=== PATIENT | male | born 1935 | race Caucasian/White ===

== ENCOUNTER → 2016-12-11 | Outpatient (CLI) | payer MEDICARE, OTHER | LOC: YCHH 10:08 | PROVIDERS: ATTEND Family Medicine | DX: E11.21 Type 2 diabetes mellitus with diabetic nephropathy (principal); E78.5 Hyperlipidemia, unspecified; D64.9 Anemia, unspecified; Z12.5 Encounter for screening for malignant neoplasm of prostate | CPT/HCPCS: 80053; 80061; 82043; 83036; 85025; G0103 ==

== ENCOUNTER → 2017-05-06 | Outpatient (CLI) | payer MEDICARE, OTHER ==
--- NOTE | 2017-05-06 14:44 | CT ---
EXAM DESCRIPTION: Chest w/Contrast CLINICAL HISTORY: 82 years, Male, ABN FINDINGS ON DIAGNOSTIC IMAGING OF OTHER SPECIFIED BODY STRUCT abnormal left lower lobe on chest x-ray COMPARISON: None TECHNIQUE: Thin-section axial CT images are obtained during rapid bolus administration of nonionic IV contrast media. Reconstructed MPR images are created and reviewed as well. This exam was performed according to our departmental dose-optimization program, which includes automated exposure control, adjustment of the mA and/or kV according to patient size and/or use of iterative reconstruction technique. FINDINGS: Advanced emphysematous changes are present with very little fibrotic lung disease. The upper and mid lung navarro are essentially clear. In the medial anterior right lung base within the right middle lobe is linear scarring that lies just lateral to the cardiac border. The left lung base is abnormal with coarsened interstitial and patchy parenchymal markings consistent with bronchopneumonia with what likely represents mild changes of bronchiectasis. There is no significant pleural effusion and there is no focal mass or dense lobar or segmental consolidation. How much of these findings is chronic and how much is acute is difficult to assess. Below the diaphragm fatty replaced liver is present with heterogeneous spleen and normal appearance to the adrenal glands and the upper poles of the kidneys. A modest hiatal hernia in the retrocardiac region is present. Prior sternotomy and epicardial pacing leads are noted in place anteriorly. Thoracic inlet and superior mediastinum and supraclavicular and axillary regions are clear. Significant hilar or mediastinal adenopathy centrally is not apparent. Visualized bony structures are unremarkable with modest degenerative changes in the dorsal spine. IMPRESSION: 1. Significant mixed interstitial and alveolar inflammatory changes at the left lung base with mixed interstitial and alveolar changes and likely an element of bronchiectasis. Acute and/or chronic inflammatory changes are suspected. 2. Minor scarring or atelectasis at the anterior medial right lung base with marked emphysematous changes in both lungs. 3. Marked fatty replacement of the liver without focal mass. 4. Prior sternotomy and epicardial pacing leads noted in place. Small hiatal hernia is incidentally noted. Electronically signed by: Devyn Lomas MD 05/06/2017 2:43 PM CDT
== END | disposition home or self-care (01) ==
LOC: LAB.O 09:20
PROVIDERS: ATTEND Family Medicine
DX: I10 Essential (primary) hypertension (principal); R93.8 Abnormal findings on diagnostic imaging of other specified body structures

== ENCOUNTER 2017-10-09 14:15 | Inpatient (IN) | payer MEDICARE, OTHER ==
[2017-10-09] MEDS ORDERED: IPRATROPIUM/ALBUTEROL 3 ML VIAL NEB ONE (14:36)
--- NOTE | 2017-10-09 14:36 | ED.PDOC ---
History of Present Illness - General Chief Complaint: Respiratory Problem Stated Complaint: Cough, congestion Time Seen by Provider: 10/09/17 14:33 Source: patient, family Exam Limitations: no limitations - History of Present Illness Initial Comments: Jorge Alberto Cook 82 y/o male stated he has productive cough of yellow phlegm for the last 3 weeks and was seen at urgent care last week given b -agonist nebulizer also had recent egd 4 days ago.Yesterday was short of breath got worse today decide to come to emergency room. Timing/Duration: other - 3 weeks Severity: moderate Possible Cause: occasional episodes, allergen exposure Improving Factors: nothing Worsening Factors: nothing Associated Symptoms: cough, other - see hpi Allergies/Adverse Reactions: Allergies Sulfa Antibiotics Allergy (Verified 10/09/17 14:38) Unknown Review of Systems - Review of Systems Constitutional: States: no symptoms reported EENTM: States: no symptoms reported Respiratory: States: see HPI Cardiology: States: no symptoms reported Gastrointestinal/Abdominal: States: no symptoms reported Genitourinary: States: no symptoms reported Musculoskeletal: States: no symptoms reported Skin: States: no symptoms reported Past Medical History (General) - Patient Medical History Hx Asthma: Yes Hx Cardiac Disorders: Yes Hx Gastroesophageal Reflux: Yes Surgical History: other - aortic valve replacement-1998,cardiac cath-4 yrs. ago, cataract,egd,colonoscopy - Social History Hx Tobacco Use: No Hx Chewing Tobacco Use: No Hx Alcohol Use: No Hx Physical Abuse: No Hx Emotional Abuse: No Hx Suspected Abuse: No - Activities of Daily Living Patient Lives Alone: No - family Grooming Ability: Independent Eating (Feeding) Ability: Independent Toileting Ability: Independent Family Medical History - Family History Father Family History: Unknown Living Status: Hx Cardiac Disease: Yes - mom/dad Hx Family Diabetes: Yes - brother Physical Exam - Physical Exam General Appearance: Alert, No apparent distress Eye Exam: bilateral normal ENT Exam: normal ENT inspection, hearing grossly normal, pharynx normal Neck: non-tender, full range of motion, supple, lymphadenopathy (R) Respiratory: no respiratory distress, decreased breath sounds, wheezing Cardiovascular/Chest: normal peripheral pulses, tachycardia, systolic murmur Gastrointestinal/Abdominal: normal bowel sounds, non tender, soft, no organomegaly Extremity: no pedal edema, no calf tenderness Neurologic: no motor/sensory deficits, alert, normal mood/affect, oriented x 3 Skin Exam: normal color, warm/dry Lymphatic: no adenopathy Progress - Progress Progress: 10/09/17 15:46 Last Vital Signs Temp 99.7 F H 10/09/17 14:32 Pulse 116 H 10/09/17 14:55 Resp 16 10/09/17 14:55 BP 116/86 10/09/17 14:32 Pulse Ox 94 L 10/09/17 14:55 - Results/Orders Results/Orders: Laboratory Tests 10/09/17 10/09/17 10/09/17 15:13 15:13 15:13 WBC 14.9 H RBC 5.08 Hgb 13.3 L Hct 41.3 L MCV 81.2 MCH 26.1 L MCHC 32.3 L RDW 16.0 H Plt Count 253 MPV 8.9 Absolute Neuts (auto) 13.90 H Absolute Lymphs (auto) 0.40 L Absolute Monos (auto) 0.60 Absolute Eos (auto) 0.00 Absolute Basos (auto) 0.00 Neutrophils % 93.0 H Lymphocytes % 2.7 L Monocytes % 4.2 Eosinophils % 0.0 L Basophils % 0.1 PT INR Sodium 133 L Potassium 5.4 H Chloride 103 Carbon Dioxide 20 L Anion Gap 15.4 BUN 34 H Creatinine 1.47 H BUN/Creatinine Ratio 23.1 H Random Glucose 187 H Serum Osmolality 278.9 Calcium 9.2 Total Bilirubin 1.0 AST 27 ALT 15 Alkaline Phosphatase 37 L Troponin I 0.08 H* B-Natriuretic Peptide 256.0 H* Serum Total Protein 7.4 Albumin 4.2 Globulin 3.2 Albumin/Globulin Ratio 1.3 10/09/17 10/09/17 15:22 16:49 WBC RBC Hgb Hct MCV MCH MCHC RDW Plt Count MPV Absolute Neuts (auto) Absolute Lymphs (auto) Absolute Monos (auto) Absolute Eos (auto) Absolute Basos (auto) Neutrophils % Lymphocytes % Monocytes % Eosinophils % Basophils % PT 24.7 H* INR 2.200 Sodium Potassium Chloride Carbon Dioxide Anion Gap BUN Creatinine BUN/Creatinine Ratio Random Glucose Serum Osmolality Calcium Total Bilirubin AST ALT Alkaline Phosphatase Troponin I 0.07 H* B-Natriuretic Peptide Serum Total Protein Albumin Globulin Albumin/Globulin Ratio - EKG/XRAY/CT EKG: Sinus, Tachy, LBBB Comments: HR-120,lae XRAY: chest - bilateral lower lobe infiltrate Departure - Departure Clinical Impression: Anticoagulant long-term use, Non-ST elevation [place] (NSTEMI) Pneumonia Qualifiers: Pneumonia type: due to unspecified organism Laterality: bilateral Lung location : lower lobe of lung Qualified Code(s): J18.9 - Pneumonia, unspecified organism Asthma Qualifiers: Asthma severity: unspecified severity Asthma complication type: with acute exacerbation Qualified Code(s): J45.901 - Unspecified asthma with (acute) exacerbation Time of Disposition: 18:46 Disposition: Admit Patient Decision To Admit - Decistion To Admit Decision to Admit Reason: Admit from ER Decision to Admit Date: 10/09/17 - D/W Ian Luciano-ANP/Hospitalist Decision to Admit Time: 18:47
--- NOTE | 2017-10-09 15:14 | RAD ---
EXAM DESCRIPTION: Chest,2 Views CLINICAL HISTORY: 82 years Male, cough COMPARISON: November 15, 2007 TECHNIQUE: PA and lateral views FINDINGS: Sternotomy changes. Parenchymal infiltrate has developed within both lower lobes. Upper lungs remain clear. Small bilateral pleural effusions. IMPRESSION: Bibasilar parenchymal infiltrate has developed Electronically signed by: Rell Jesus 10/09/2017 3:13 PM SPEECH ASSISTANT
[2017-10-09] MEDS ORDERED: SODIUM CHLORIDE 0.9% 500ML 500 ML IVS ONE ×2 (15:20→19:12)
[2017-10-09] MEDS ORDERED: AZITHROMYCIN IV 500 MG in SODIUM CHLORIDE 0.9% 250ML 250 ML IVPB ONE (15:22)
[2017-10-09] MEDS ORDERED: cefTRIAXone SODIUM 1 GM in SODIUM CHL 0.9% 50ML MIN-BAG+ 50 ML IVPB ONE (15:22)
[2017-10-09] MEDS ORDERED: methylPREDNISolone SODIUM SUC 125 MG/2 ML VIAL IV ONE (15:26)
[2017-10-09] MEDS ORDERED: cefTRIAXone SODIUM 1 GM VIAL ONE (15:47)
[2017-10-09] MEDS ORDERED: SODIUM CHL 0.9% 50ML MIN-BAG+ 50 ML IVPB ONE (15:47)
[2017-10-09] MEDS: PANTOPRAZOLE SODIUM TAB 40 MG PO ONE ×2 (16:01→19:48)
[2017-10-09] MEDS ORDERED: AZITHROMYCIN IV 500 MG VIAL IVPB ONE (16:56)
[2017-10-09] MEDS ORDERED: SODIUM CHLORIDE 0.9% 250ML 250 ML ONE (16:59)
--- NOTE | 2017-10-09 18:43 | HP ---
SUPERVISING PHYSICIAN: Devyn Huynh MD CHIEF COMPLAINT: Cough, congestion. HISTORY OF PRESENT ILLNESS: Mr. Cook is an 82 year-old male patient who presented to the Emergency Room complaining of increasing productive cough with purulent sputum over the last three weeks with increasing shortness of breath. He does have a significant history of chronic obstructive pulmonary disease with some bronchiectasis. He was seen in the Urgent Care Clinic the past week and given a prescription for albuterol but no mention of any antibiotics. He did recently have an EGD done in the past four days by Dr. Puente for evaluation of dysphagia. He also stated he had a couple episodes of choking on food. Laboratory studies on admission to the Emergency Department showed that he had a leukocytosis of 14,900 with a left shift. Chemistries initially showed elevated troponin of 0.08 with patient not having any reported chest pain. Repeat three hours later showed the troponin was down to 0.07. BNP was slightly up at 256. Electrolytes showed a mild hyponatremia with sodium of 133 with a hypokalemia, potassium of 5.4. Radiographic studies in the Emergency Room, 2-view chest per radiology interpretation showed bibasilar parenchymal infiltrate. His vital signs showed he was hemodynamically stable with a blood pressure of 129/79 with heart rate initially 127, saturation 90% on room air at rest. Given the worsening shortness of breath, productive cough and purulent sputum and radiographic findings consistent for pneumonia bilaterally with a leukocytosis, Dr. Dasilva requested the patient be admitted for initiation of treatment for underlying chronic obstructive pulmonary disease exacerbation with developing pneumonia community acquired. Blood cultures were completed and he was started on antibiotics including Rocephin and azithromycin as well as Solu-Medrol and breathing treatments. He was admitted in stable condition. PAST MEDICAL HISTORY: 1. Chronic obstructive pulmonary disease. 2. Type 2 diabetes mellitus. 3. Hyperlipidemia. 4. Coronary artery disease with stable angina medically managed in 2009. 5. Benign prostatic hypertrophy. 6. Aortic stenosis with aortic replacement. 7. Hypertension. 8. Seasonal allergies. 9. Osteoporosis. PAST SURGICAL HISTORY: 1. Tonsillectomy. 2. Aortic valve replacement with pig valve. 3. Esophagogastroduodenoscopy within the past week. 4. Esophagogastroduodenoscopy in 1998 with a dilation of a Schatzki ring.. CURRENT MEDICATIONS: 1. Lisinopril 10 mg at bedtime. 2. 5 mg in the morning. 3. Nitroglycerin tablets as needed, 0.4 mg. 4. Proventil nebulizer 2.5 mg twice a day. 5. Benadryl 25 mg daily. 6. Aspirin 325 mg twice a day. 7. Metformin 500 mg twice a day. 8. Gabapentin 300 mg at bedtime. 9. Phenylephrine with acetaminophen sinus congestion with pain daily, one tablet b.i.d. 10. Budesonide 0.25 mg twice a day. 11. Coumadin 2.5 mg daily. 12. Calcium 600 mg daily. 13. Prolia 60 mg subcu every 6 months. 14. Omeprazole 40 mg daily. ALLERGIES: SULFA ANTIBIOTICS. FAMILY HISTORY: Carcinoma of the colon, celiac disease, Crohn's disease, ulcerative colitis SOCIAL HISTORY: The patient is retired. He is . He lives in [place]. He does have a past history of smoking but quit many years previously. He denies any alcohol consumption or illicit drug use. REVIEW OF SYSTEMS: CONSTITUTIONAL: He has had some weight loss, unintentional, felt to be secondary to esophageal strictures for which he had an EGD within the last week. HEENT: Denies any dizziness, syncopal episodes, headaches, blurred vision or vision changes. CHEST: Chronic cough with worsening shortness of breath and productive cough as noted in history of present illness. HEART: Denies any chest pains, does have history of aortic valve replacement, no reported palpitations or syncopal episodes. Does have some shortness of breath on exertion. ABDOMEN: As noted in history of present illness. Previous EGD this past week for esophageal problem but denies any nausea, vomiting, diarrhea or constipation. GENITOURINARY: Denies any dysuria, hematuria or other urinary symptoms. NEUROLOGIC: Denies any syncopal episodes or other neurological changes. PHYSICAL EXAMINATION: VITAL SIGNS: Temperature 99.7, initial pulse in the Emergency Room was 127 with blood pressure 116/86. Respirations 22 to 24, showing 90% on room air at rest. After breathing treatment and after admission to the medical/surgical floor heart rate was 97, blood pressure 129/79. Saturation 97% on room air at rest. Weight 53.7 kg. GENERAL: On admission to the medical/surgical floor, the patient appears to be resting comfortably and in no distress. He does appear frail and ill but is alert. HEENT: Tympanic membranes clear bilaterally. Oropharynx pink and moist without any lesions. NECK: Supple, non-tender, full range of motion with no jugular venous distention. CHEST: Breath sounds were decreased throughout with some inspiratory expiratory wheezing, more so on the right than the left. CARDIOVASCULAR: Heart tachycardiac with a systolic murmur. ABDOMEN: Soft, non-tender, positive bowel sounds. EXTREMITIES: No cyanosis, clubbing, or edema. NEUROLOGIC: He was alert and oriented x 3. Facial features were symmetrical. Extraocular movement were within normal limits. Cranial nerves II through XII were grossly intact. LABORATORY: White count showed a leukocytosis of 14,900 with a left shift. Hemoglobin 13, hematocrit 41.3 with platelet count 253,000. Coagulation studies showed a therapeutic INR at 2.2 with PT of 24.7. Chemistries showed a hyponatremia of 133, hyperkalemia with potassium 5.4. Anion gap normal at 15. Carbon dioxide low at 20. BUN 34, creatinine 1.47, glucose 187. Liver functions showed to be within normal limits. BNP elevated at 256 with troponin initially of 0.08 with repeat 3 hours later after admission, it was down to 0.07. Urinalysis showed 15 ketones, tract intact blood. MICROSCOPIC: 5 to 10 RBCs, 1+ bacteria with trace amorphous sediment and mucous. MICROBIOLOGY: Gram stain pending. Sputum culture pending. Blood cultures pending. Influenza swab for A and B by PCR was negative. RADIOLOGY: Chest x-ray 2-view chest per radiology interpretation in the Emergency Department showed bibasilar parenchymal infiltrate with small bilateral pleural effusions. A 12-lead EKG showed a left bundle branch block with sinus tachycardia with no acute changes as compared to review of past EKG that was completed on 04/29/17 that showed a left bundle branch block. ASSESSMENT: 1. Acute exacerbation of chronic obstructive pulmonary disease with community acquired pneumonia as noted, bilateral infiltrates with a degree of bronchiectasis. 2. Leukocytosis with a left shift secondary to #1. 3. Electrolyte imbalance with a mild hyponatremia and mild hyperkalemia secondary to underlying developing pneumonia and some mild renal insufficiency. 4. Renal insufficiency likely due to prerenal azotemia and some mild dehydration contributing to the hyperkalemia 5. Slightly elevated troponin with an elevated BNP with no mention of history of congestive heart failure with patient having no reported chest pains and no acute changes on EKG possibly secondary to underlying hypoxemia secondary to pneumonia as noted in #1 although cannot completely rule out nonSTEMI. 6. Tachycardia probably related to underlying pneumonia and acute illness and some mild dehydration and possibly secondary to medication side effects to [id number] sinus medication. 7. Hypertension. 8. Diabetes mellitus type 2 on oral therapy. 9. History of coronary artery disease diagnosed in 2010 with stable angina medically managed. 10. Aortic stenosis with aortic valve replacement. 11. Osteoporosis. PLAN: Mr. Cook will be admitted to the medical/surgical floor for further treatment of underlying chronic obstructive pulmonary disease exacerbation and developing pneumonia. He was started on antibiotics after blood cultures were completed that included Rocephin and azithromycin. He was also given a loading dose of Solu-Medrol of 125 mg. Will continue with antibiotics and Solu-Medrol at 80 every 6 hours for 3 doses and utilize aggressive pulmonary hygiene with Xopenex in efforts to minimize his tachycardia. Will start him on some normal saline in efforts to correct his hyponatremia. Will continue the medications including Warfarin once the medications have been updated and verified in the electronic medical records. Will closely monitor his clinical progression and await a sputum culture as well as gram stain. He does have a slight risk for a previous aspiration and possible consideration or Pseudomonas infection given that he has underlying bronchiectasis, however, patient has not been on any antibiotics within the last 3 or 4 months and has not had a recent hospitalization. Therefore, will treat him conservatively wt Rocephin and azithromycin and should he show the need for escalation of his antibiotic regimen based on sputum cultures or clinical presentation, will certainly do so with Levaquin and Cefepime as needed. Will plan to repeat his laboratory studies and chest x-ray in the morning. Will anticipate length of stay to be at least 2 to 3 days and until clinically stable will continue to monitor and treat appropriately. Once discharged he can continue with outpatient treatment plan and close clinical followup with Dr. Hanna, his primary care physician. #[id number] #[id number] ELE
[2017-10-09] MEDS ORDERED: SODIUM CHLORIDE 0.9% 1000ML 1,000 ML ONE (19:11)
[2017-10-09] MEDS ORDERED: SODIUM CHLORIDE 0.9% 1000ML 1,000 ML IVS ONE (19:13)
[2017-10-09] MEDS ORDERED: LEVALBUTEROL NEBS 1.25 MG/3 ML VIAL INH PRN (20:33)
[2017-10-09] MEDS ORDERED: SODIUM CHLORIDE 0.9% (FLUSH) 10 ML SYG IV PRN (20:33)
[2017-10-09] MEDS ORDERED: ACETAMINOPHEN 325 MG TAB PO PRN (20:33)
[2017-10-09] MEDS ORDERED: DEXTROSE 50% 25 GM/50 ML SYG IV PRN (20:41)
[2017-10-09] MEDS ORDERED: GLUCAGON INJ 1 MG VIAL SUBCU PRN (20:41)
--- NOTE | 2017-10-09 20:49 | PCM.CORE ---
Physician DVT/VTE - Prophylaxis Currently: Patient already on anticoagulation therapy - Nurse DVT Assessment & Total Each Risk Factor Represents 3 Points: Age over 75 years Each Risk Factor Represents 1 Point: Medical PT at Bed Rest Each Risk Factor is 1 Point: Serious Lung disease (pnemonia <1month, COPD, emphysema,etc) DVT Assessment Score: 5 - 5 or more Very High Risk Treatments: Early Ambulation *, Sequential Compression Device Pharmacological: Warfarin daily
[2017-10-09] MEDS: IV SET AND CAP CHANGE INJ INJ SCH (21:00)
[2017-10-09] MEDS: SODIUM CHLORIDE 0.9% 1000ML 1,000 ML IVS PRN (21:02)
[2017-10-09] MEDS: INSULIN LISPRO 100 UNITS/ML PEN SUBCU SCH (21:34)
[2017-10-09] MEDS ORDERED: ALPRAZolam 0.25 MG TAB PO ONE (22:59)
[2017-10-09] MEDS: methylPREDNISolone SODIUM SUC 125 MG/2 ML VIAL IV SCH (23:25)
[2017-10-10] MEDS ORDERED: LEVALBUTEROL NEBS 1.25 MG/3 ML VIAL INH SCH
[2017-10-10] MEDS: SODIUM CHLORIDE 0.9% 1000ML 1,000 ML IVS PRN ×2 (04:37→19:42)
[2017-10-10] MEDS: methylPREDNISolone SODIUM SUC 125 MG/2 ML VIAL IV SCH ×2 (05:17→11:24)
[2017-10-10] MEDS: PANTOPRAZOLE SODIUM IV 40 MG VIAL IV SCH (06:03)
[2017-10-10] MEDS: INSULIN LISPRO 100 UNITS/ML PEN SUBCU SCH ×5 (07:22→21:09)
[2017-10-10] MEDS ORDERED: SODIUM CHLORIDE 0.9% 250ML 250 ML ONE (07:33)
[2017-10-10] MEDS ORDERED: SODIUM CHL 0.9% 50ML MIN-BAG+ 50 ML IVPB ONE (07:33)
[2017-10-10] MEDS ORDERED: cefTRIAXone SODIUM 1 GM VIAL ONE (07:34)
[2017-10-10] MEDS ORDERED: AZITHROMYCIN IV 500 MG VIAL IVPB ONE (07:34)
[2017-10-10] MEDS: LEVALBUTEROL NEBS 1.25 MG/3 ML VIAL NEB SCH ×3 (08:29→23:45)
--- NOTE | 2017-10-10 08:36 | RAD ---
EXAM DESCRIPTION: Chest,2 Views CLINICAL HISTORY: 82 years Male, Pneumonia COMPARISON: October 09, 2017 TECHNIQUE: PA lateral views FINDINGS: Sternotomy changes. Bibasilar infiltrate is again seen, unchanged. Upper lungs remain clear. Small effusions. IMPRESSION: Bibasilar infiltrate and small effusions unchanged Electronically signed by: Rell Jesus 10/10/2017 8:35 AM BRAID MAKER
[2017-10-10] MEDS: cefTRIAXone SODIUM 1 GM in SODIUM CHL 0.9% 50ML MIN-BAG+ 50 ML IVPB SCH (08:52)
[2017-10-10] MEDS: AZITHROMYCIN IV 500 MG in SODIUM CHLORIDE 0.9% 250ML 250 ML IVPB SCH (09:50)
[2017-10-10] MEDS: ARFORMOTEROL TARTRATE 15 MCG/2 ML NEB NEB SCH ×2 (10:15→19:30)
[2017-10-10] MEDS ORDERED: METOPROLOL TARTRATE 25 MG TAB PO ONE (13:12)
[2017-10-10] MEDS ORDERED: INSULIN DETEMIR 100 UNITS/ML PEN SUBCU ONE (13:13)
[2017-10-10] MEDS ORDERED: BUDESONIDE NEBS 0.5 MG/2 ML VIAL NEB ONE (13:28)
[2017-10-10] MEDS ORDERED: WARFARIN SODIUM 2.5 MG TAB PO SCH (13:30)
[2017-10-10] MEDS: LEVALBUTEROL NEBS 1.25 MG/3 ML VIAL NEB PRN ×2 (13:31→16:48)
[2017-10-10] MEDS: BUDESONIDE NEBS 0.25 MG/2 ML INH INH SCH ×2 (13:31→19:30)
[2017-10-10] MEDS ORDERED: methylPREDNISolone SODIUM SUC 40 MG/ML VIAL ONE (13:34)
[2017-10-10] MEDS: guaiFENesin ER TAB 600 MG TAB PO SCH ×2 (13:37→21:16)
[2017-10-10] MEDS: diphenhydrAMINE HCL 25 MG CAP PO SCH (13:37)
--- NOTE | 2017-10-10 14:34 | PN ---
DATE: 10/10/17 SUPERVISING PHYSICIAN: Devyn Huynh M.D. SUBJECTIVE: The patient is resting in bed. He appears to be comfortable in no acute distress. He has been afebrile. No nausea, vomiting, diarrhea or chest pains. He does continue to have copious amounts of sputum. OBJECTIVE: VITAL SIGNS: Temperature max 99.4, pulse 102, blood pressure 104/63 , respirations 20, satting 93% on room air. I's and O's show a positive balance of 1347 with 2147 in, 800 out. He has had 1 bowel movement. Weight 55.2 kg. CHEST: Lung sounds are diminished bilaterally with notable crackles on the right posterolateral aspect. No rales, but there is some mild inspiratory and expiratory wheezing heard bilaterally. HEART: Tachycardic rhythm with a regular rate with no murmurs or gallops. ABDOMEN: Soft, non- tender with positive bowel sounds. EXTREMITIES: No clubbing, cyanosis or edema. NEUROLOGIC: He is alert and oriented times three. LABORATORY: White count went up to 19,400 with hemoglobin1 1.6, hematocrit 35.9 , platelet count at 237,000. Differential continues to show a left shift. Chemistries show normal electrolytes with potassium 3.5, sodium 137, BUN is down to 26, creatinine is normalized to 1.12. Glucoses have been elevated in the mid 200s from 255 to 292. Troponin this morning was down to 0.04. MICROBIOLOGY: Gram stain showed many WBCs with positive cocci in chains and pairs, and moderate gram negative bacilli, but sputum culture showed normal tisha at 24 hours. Blood cultures remain negative. RADIOLOGY: Repeat chest x-ray this morning two view chest per radiology interpretation showed bibasilar infiltrates and small effusion unchanged from admission. ASSESSMENT: 1. Acute exacerbation of chronic obstructive pulmonary disease with a history of bronchiectasis with community acquired pneumonia as noted with bilateral infiltrates on radiographic studies. 2. Leukocytosis with a left shift secondary to #1. 3. Electrolyte imbalance with a mild hyponatremia improved with IV fluids with a mild hyperkalemia that has also resolved. 4. Mild hyperkalemia secondary to underlying developing pneumonia and mild renal insufficiency improved with IV fluids. 4. Renal insufficiency likely due to prerenal azotemia with some mild dehydration contributing to the hyperkalemia showing improvement with IV fluids. 5. Slightly elevated troponin on admission with elevated BNP with no mention of chest pains with cardiac enzymes returning to baseline normal status likely secondary to some underlying hypoxia secondary to pneumonia as noted in #1, although cannot completely rule out Non-ST segment elevation myocardial infarction. 6. Tachycardia probably related to underlying pneumonia and acute illness and dehydration showing some improvement with IV fluids requiring initiation of beta blockers with close monitoring. 7. Hypertension. 8. Diabetes mellitus type 2 on oral therapy showing elevated glucoses secondary to ongoing corticosteroid administration. 9. History of coronary artery disease diagnosed in 2010 with stable angina having medically managed previously. 10. Aortic stenosis with aortic valve replacement on chronic Coumadin therapy. 11. Osteoporosis. PLAN: Will continue current plan of care at this point as he has shown no growth on his sputum and has clinically unchanged, but he does show an elevation of white count. Will closely monitor him clinically and any kind of decline certainly will warrant a change in medication and antibiotic regimen, but until then will continue to monitor closely and continue with Rocephin and Azithromycin. His blood cultures have been negative to date and sputum culture shows normal tisha. He continues to have some wheezing, therefore will continue with corticosteroids but will titrate down as able to depending on clinical presentation. He will continue with aggressive pulmonary hygiene with Xopenex and I will add Brovana to his medication regimen. Will continue with IV fluids as current as he is having poor oral intake and has shown improvement in his hydration status as well as normalization of his electrolytes. Will plan to repeat laboratory studies in the morning as well as chest x-ray. Until clinically stable enough to be discharged to continue with outpatient treatment plan, will continue to monitor and treat appropriately. #[id number] [facility]
[2017-10-10] MEDS: metFORMIN HCL 500 MG TAB PO SCH (17:03)
[2017-10-10] MEDS: methylPREDNISolone SODIUM SUC 40 MG/ML VIAL IV SCH ×2 (17:39→23:57)
[2017-10-10] MEDS ORDERED: LISINOPRIL 10 MG TAB ONE (19:37)
[2017-10-10] MEDS ORDERED: GABAPENTIN 300 MG CAP ONE (19:38)
[2017-10-10] MEDS: LISINOPRIL 10 MG TAB PO SCH (21:16)
[2017-10-10] MEDS: GABAPENTIN 300 MG CAP PO SCH (21:16)
[2017-10-10] MEDS ORDERED: ALPRAZolam 0.25 MG TAB PO PRN (22:13)
[2017-10-11] MEDS: PANTOPRAZOLE SODIUM IV 40 MG VIAL IV SCH (06:28)
[2017-10-11] MEDS: methylPREDNISolone SODIUM SUC 40 MG/ML VIAL IV SCH ×3 (06:28→21:13)
--- NOTE | 2017-10-11 07:00 | RAD ---
Procedure: XR CHEST 2 VIEWS Exam Date: 10/11/2017 Ordering Provider: Ian Luciano NP Clinical Indication: pneumonia Comparison: 10/10/2017 Findings: Residuals of thoracic surgery. Cardiomediastinal silhouette is stable. Focal lung consolidation: Bibasilar atelectasis and/or infiltrate. Pleural effusion: Small bilateral pleural effusions. Pneumothorax: None Bones and soft tissues: Nonacute Impression: 1. Bibasilar atelectasis and/or infiltrate with small bilateral pleural effusions. Electronically signed by: Balwinder Gilliland MD 10/11/2017 6:59 AM DECALER
[2017-10-11] MEDS ORDERED: CALCIUM CARBONATE-VITAMIN D 500 MG TAB ONE (07:16)
[2017-10-11] MEDS ORDERED: SODIUM CHLORIDE 0.9% 250ML 250 ML ONE (07:16)
[2017-10-11] MEDS ORDERED: SODIUM CHL 0.9% 50ML MIN-BAG+ 50 ML IVPB ONE (07:16)
[2017-10-11] MEDS ORDERED: AZITHROMYCIN IV 500 MG VIAL IVPB ONE (07:17)
[2017-10-11] MEDS ORDERED: WARFARIN SODIUM 2.5 MG TAB ONE (07:17)
[2017-10-11] MEDS ORDERED: cefTRIAXone SODIUM 1 GM VIAL ONE (07:17)
[2017-10-11] MEDS: SODIUM CHLORIDE 0.9% 1000ML 1,000 ML IVS PRN (07:25)
[2017-10-11] MEDS: INSULIN LISPRO 100 UNITS/ML PEN SUBCU SCH ×7 (07:46→21:11)
[2017-10-11] MEDS: metFORMIN HCL 500 MG TAB PO SCH ×2 (07:49→16:49)
[2017-10-11] MEDS: cefTRIAXone SODIUM 1 GM in SODIUM CHL 0.9% 50ML MIN-BAG+ 50 ML IVPB SCH (08:41)
[2017-10-11] MEDS: CALCIUM CARBONATE-VITAMIN D 500 MG TAB PO SCH (08:43)
[2017-10-11] MEDS: diphenhydrAMINE HCL 25 MG CAP PO SCH (08:43)
[2017-10-11] MEDS: LISINOPRIL 10 MG TAB PO SCH ×2 (08:43→21:13)
[2017-10-11] MEDS: guaiFENesin ER TAB 600 MG TAB PO SCH ×2 (08:43→21:12)
[2017-10-11] MEDS: LEVALBUTEROL NEBS 1.25 MG/3 ML VIAL NEB SCH ×2 (08:51→16:42)
[2017-10-11] MEDS: ARFORMOTEROL TARTRATE 15 MCG/2 ML NEB NEB SCH ×2 (08:51→20:05)
[2017-10-11] MEDS: BUDESONIDE NEBS 0.25 MG/2 ML INH INH SCH ×2 (08:51→20:05)
[2017-10-11] MEDS: AZITHROMYCIN IV 500 MG in SODIUM CHLORIDE 0.9% 250ML 250 ML IVPB SCH (10:02)
[2017-10-11] MEDS: SODIUM CHLORIDE 0.9% (FLUSH) 10 ML SYG IV SCH ×2 (10:03→21:13)
[2017-10-11] MEDS: WARFARIN SODIUM 2.5 MG TAB PO SCH (12:11)
[2017-10-11] MEDS: INSULIN DETEMIR 100 UNITS/ML PEN SUBCU SCH ×2 (12:11→21:12)
--- NOTE | 2017-10-11 14:22 | PN ---
DATE: 10/11/17 SUPERVISING PHYSICIAN: Devyn Huynh M.D. SUBJECTIVE: The patient is sitting in the bedside chair today. He says his appetite is much improved. He ate all of his breakfast this morning. He notes that his breathing is improved. He has remained afebrile. He has had no chest pains, nausea, vomiting or diarrhea. OBJECTIVE: VITAL SIGNS: Temperature 97.2, pulse 94, blood pressure 157/85, respirations 18, satting 96% on room air at rest. I's and O's show a positive balance of 1600 with 2400 in, 800 out. He has had a bowel movement today. Weight is 56.4 kg. CHEST: Lungs sounds diminished towards the bases bilaterally with improvement in aeration compared to previous days. There is no rhonchi but he continues to have some slight wheezing noted in the upper apices bilaterally more prominent on expiratory than inspiratory. HEART: Shows a controlled rate with no murmurs or gallops. ABDOMEN: Soft, non-tender with positive bowel sounds. EXTREMITIES: No clubbing, cyanosis or edema. NEUROLOGIC : He is alert and oriented times three. LABORATORY: White counts is down to 14,900 with hemoglobin 10.8, hematocrit 32.8, platelet count 210,000. Differential does continue to show a left shift. RBC indices indicate a microcytic hypochromic presentation. Chemistries show a normal potassium and sodium. Chloride is up a little bit today at 114. He is doing to be saline locked. Carbon dioxide is 18 with anion gap 11.4, BUN 11 , creatinine 1.0. Blood sugars remain fairly erratic ranging from 142 up to 311. MICROBIOLOGY: Sputum culture showed normal tisha at 48 hours. Blood cultures remain negative at 24 hours. RADIOLOGY: Repeat chest x-ray today per radiology interpretation with two view chest shows bibasilar atelectasis and/or infiltrate with small bilateral effusions. No significant changed compared to previous days. ASSESSMENT: 1. Acute exacerbation of chronic obstructive pulmonary disease with history of bronchiectasis with community acquired pneumonia as noted with bilateral infiltrates on radiographic studies on parenteral antibiotics to include Rocephin and Azithromycin showing good clinical response. 2. Leukocytosis with a left shift secondary to #1 improving after initiation of antibiotics. 3. Electrolyte imbalance with mild hyponatremia, improved with fluids along with a mild hyperkalemia that is now resolved. 4. Mild hyperkalemia improved with IV fluids felt to be secondary to dehydration. 5. Renal insufficiency with prerenal azotemia presentation secondary to mild dehydration contributing to hyperkalemia showing improvement with IV fluids. 6. Elevated troponin on admission just slightly above baseline with an elevated BNP with no chest pains reported with cardiac enzymes returning to baseline normal status felt to be secondary to acute hypoxic event stress induced from developing pneumonia and increase in oxygenation requirements, although cannot completely rule out previous non-ST segment elevation myocardial infarction with initially elevated troponins. 7. Tachycardia probably related to underlying pneumonia and acute illness and some dehydration showing improvement and better control after IV fluids, initiation of a low dose beta selma continuing to require close cardiac monitoring. 8. Hypertension. 9. Diabetes mellitus type 2 on oral therapy with elevated glucose through admission secondary to ongoing corticosteroids requiring initiation of long acting and short acting insulins. 10. History of coronary artery disease diagnosed in 2009 with stable angina having medically managed previously. 11. Aortic stenosis with aortic valve replacement with mechanical valve on chronic Coumadin therapy. 12. Osteoporosis. PLAN: The patient continues to show some improvement with current plan of care. Will continue with aggressive pulmonary hygiene and slowly titrate his Solu-Medrol to a lower dose in anticipation of going to a p.o. dose as clinically stable. Will continue with IV antibiotics to include Rocephin and Azithromycin, and monitor closely. He is now showing a better volume status and he will be saline locked and encouraged oral intake to continue with hydration status. Will repeat laboratory studies in the morning along with a chest x-ray and until clinically stable to discharge, will continue to monitor closely and treat appropriately. #[id number] [facility]
[2017-10-11] MEDS ORDERED: LISINOPRIL 10 MG TAB PO SCH (21:00)
[2017-10-11] MEDS ORDERED: BUDESONIDE NEBS 0.25 MG/2 ML INH INH SCH (21:00)
[2017-10-11] MEDS ORDERED: GABAPENTIN 300 MG CAP PO SCH (21:00)
[2017-10-11] MEDS ORDERED: metFORMIN HCL 500 MG TAB PO SCH (21:00)
[2017-10-11] MEDS: GABAPENTIN 300 MG CAP PO SCH (21:12)
[2017-10-12] MEDS: LEVALBUTEROL NEBS 1.25 MG/3 ML VIAL NEB SCH ×3 (00:12→15:40)
[2017-10-12] MEDS: PANTOPRAZOLE SODIUM IV 40 MG VIAL IV SCH (06:25)
--- NOTE | 2017-10-12 07:28 | RAD ---
Chest two views INDICATION: Pneumonia COMPARISON: October 11, 2017 IMPRESSION: Normal heart size. Stable small bibasilar areas of infiltrate or atelectasis. Prior median sternotomy. Bones are osteopenic. Previous heart valve replacement. Minimal bilateral pleural fluid/thickening on the lateral view. Electronically signed by: Baudilio Fishman MD 10/12/2017 7:26 AM [facility]
[2017-10-12] MEDS: metFORMIN HCL 500 MG TAB PO SCH ×2 (07:38→22:20)
[2017-10-12] MEDS: INSULIN LISPRO 100 UNITS/ML PEN SUBCU SCH ×7 (07:40→22:21)
[2017-10-12] MEDS ORDERED: SODIUM CHL 0.9% 50ML MIN-BAG+ 50 ML IVPB ONE (07:57)
[2017-10-12] MEDS ORDERED: cefTRIAXone SODIUM 1 GM VIAL ONE (07:58)
[2017-10-12] MEDS: ARFORMOTEROL TARTRATE 15 MCG/2 ML NEB NEB SCH ×2 (08:11→21:05)
[2017-10-12] MEDS: BUDESONIDE NEBS 0.25 MG/2 ML INH INH SCH ×2 (08:12→21:05)
[2017-10-12] MEDS: cefTRIAXone SODIUM 1 GM in SODIUM CHL 0.9% 50ML MIN-BAG+ 50 ML IVPB SCH (08:46)
[2017-10-12] MEDS: CALCIUM CARBONATE-VITAMIN D 500 MG TAB PO SCH (08:50)
[2017-10-12] MEDS: diphenhydrAMINE HCL 25 MG CAP PO SCH (08:50)
[2017-10-12] MEDS: guaiFENesin ER TAB 600 MG TAB PO SCH ×2 (08:50→22:18)
[2017-10-12] MEDS: LISINOPRIL 10 MG TAB PO SCH ×2 (08:51→22:18)
[2017-10-12] MEDS: INSULIN DETEMIR 100 UNITS/ML PEN SUBCU SCH ×2 (08:52→22:18)
[2017-10-12] MEDS: methylPREDNISolone SODIUM SUC 40 MG/ML VIAL IV SCH ×2 (08:52→22:19)
[2017-10-12] MEDS ORDERED: LISINOPRIL 10 MG TAB PO SCH (09:00)
[2017-10-12] MEDS ORDERED: WARFARIN SODIUM 2.5 MG TAB PO SCH (09:00)
[2017-10-12] MEDS ORDERED: NON-FORMULARY MEDICATION 1 EA MIS (Calcium [Calcium] 600 MG) PO SCH (09:00)
[2017-10-12] MEDS ORDERED: diphenhydrAMINE HCL 25 MG CAP PO SCH (09:00)
[2017-10-12] MEDS: SODIUM CHLORIDE 0.9% (FLUSH) 10 ML SYG IV SCH ×2 (09:08→22:18)
[2017-10-12] MEDS: AZITHROMYCIN 250 MG TAB PO SCH (09:58)
[2017-10-12] MEDS: WARFARIN SODIUM 2.5 MG TAB PO SCH (11:55)
[2017-10-12] MEDS ORDERED: PANTOPRAZOLE SODIUM TAB 40 MG PO ONE (21:03)
[2017-10-12] MEDS: IV SET AND CAP CHANGE INJ INJ SCH (22:17)
[2017-10-12] MEDS: GABAPENTIN 300 MG CAP PO SCH (22:18)
[2017-10-13] MEDS: LEVALBUTEROL NEBS 1.25 MG/3 ML VIAL NEB PRN (04:42)
[2017-10-13 06:25] VITALS: O2SAT 95
[2017-10-13] MEDS ORDERED: PANTOPRAZOLE SODIUM TAB 40 MG PO SCH (06:30)
--- NOTE | 2017-10-13 06:47 | RAD ---
EXAM DESCRIPTION: Chest,2 Views CLINICAL HISTORY: pneumonia COMPARISON: 10/12/2017 FINDINGS: Frontal and lateral views of the chest. Prior median sternotomy. Atherosclerotic calcification of the aortic arch. Bibasilar airspace opacities, more confluent in the right infrahilar region. Likely small bilateral pleural effusions. No pneumothorax. Leads overlie the chest. No displaced rib fractures identified. Upper abdominal soft tissues are unremarkable. IMPRESSION: 1. No significant interval change in bibasilar airspace opacities and possible small bilateral pleural effusions. Electronically signed by: Kody Gonzales 10/13/2017 6:46 AM [facility]
[2017-10-13] MEDS: ARFORMOTEROL TARTRATE 15 MCG/2 ML NEB NEB SCH (07:20)
[2017-10-13] MEDS: LEVALBUTEROL NEBS 1.25 MG/3 ML VIAL NEB SCH ×2 (07:22)
[2017-10-13] MEDS: BUDESONIDE NEBS 0.25 MG/2 ML INH INH SCH (07:22)
[2017-10-13] MEDS ORDERED: SODIUM CHL 0.9% 50ML MIN-BAG+ 50 ML IVPB ONE (07:48)
[2017-10-13] MEDS ORDERED: cefTRIAXone SODIUM 1 GM VIAL ONE (07:49)
[2017-10-13] MEDS: INSULIN LISPRO 100 UNITS/ML PEN SUBCU SCH ×4 (07:54→11:33)
[2017-10-13] MEDS: metFORMIN HCL 500 MG TAB PO SCH (07:55)
[2017-10-13] MEDS: INSULIN DETEMIR 100 UNITS/ML PEN SUBCU SCH (08:02)
[2017-10-13] MEDS: LISINOPRIL 10 MG TAB PO SCH (08:03)
[2017-10-13] MEDS: AZITHROMYCIN 250 MG TAB PO SCH (08:03)
[2017-10-13] MEDS: diphenhydrAMINE HCL 25 MG CAP PO SCH (08:04)
[2017-10-13] MEDS: CALCIUM CARBONATE-VITAMIN D 500 MG TAB PO SCH (08:04)
[2017-10-13] MEDS: guaiFENesin ER TAB 600 MG TAB PO SCH (08:04)
[2017-10-13] MEDS: cefTRIAXone SODIUM 1 GM in SODIUM CHL 0.9% 50ML MIN-BAG+ 50 ML IVPB SCH (08:04)
[2017-10-13] MEDS: SODIUM CHLORIDE 0.9% (FLUSH) 10 ML SYG IV SCH (08:05)
[2017-10-13] MEDS ORDERED: predniSONE 20 MG TAB PO SCH (09:00)
[2017-10-13 10:14] VITALS: BP 158/93; TEMP 97.9
[2017-10-13] MEDS: WARFARIN SODIUM 2.5 MG TAB PO SCH (11:34)
--- NOTE | 2017-10-13 18:50 | PN ---
SUPERVISING PHYSICIAN: Nathan Hanna MD DATE: 10/12/17 SUBJECTIVE: The patient is improving. We discussed possibly going home tomorrow. He will continue some ambulation and reevaluate in the morning, but he remains afebrile. He has had no nausea, vomiting, diarrhea. OBJECTIVE: VITAL SIGNS: Temperature 97.5. Pulse 88. Blood pressure 160/80. Respirations 20. Saturation 96% on room air. I&Os show positive balance of 182 with 1407 in, 1225 out. He did have one bowel movement. Weight 56.2 kg. CHEST: Lung sounds are much clearer today. There is no wheezing noted, but he is diminished towards the bases bilaterally. HEART: Regular rate and rhythm. ABDOMEN: Soft, nontender. Positive bowel sounds. EXTREMITIES: No cyanosis, clubbing or edema. NEUROLOGIC: Alert and oriented times three. LABORATORY: White count 15,400, hemoglobin 10.9, hematocrit 34.0, platelet count 232,000. Differential continued to show a left shift. Coagulation studies were not completed yesterday. Chemistries showed normal electrolytes with BUN 28, creatinine 0.8. Glucoses have been 86 to 200. MICROBIOLOGY: Blood cultures remain negative at 4 days. Sputum culture showed normal tisha at 48 hours. RADIOLOGY: Repeat chest x-ray, two view, per radiologic interpretation showed stable small basilar areas of infiltrate or atelectasis with minimal bilateral plural fluid thickening on the lateral view. ASSESSMENT: 1. Acute exacerbation of chronic obstructive pulmonary disease with history of bronchiectasis with community acquired pneumonia as noted with bilateral infiltrates on radiographic studies requiring initiation of parenteral antibiotics to include Rocephin and azithromycin, showing good clinical response. 2. Leukocytosis, improving with a left shift continued, secondary to #1. 3. Electrolyte imbalance on admission with mild hyponatremia, resolved after IV fluids as well as mild hyperkalemia also resolved. 4. Renal insufficiency with prerenal azotemia secondary to dehydration on admission, improved after IV fluids. 5. Elevated troponin on admission, returning to baseline with an elevated BNP with no chest pains without EKG changes, felt to be secondary to underlying hypoxic event, stress induced from developing pneumonia, although cannot completely rule out a non-ST segment elevation myocardial infarction. 6. Tachycardia, related to underlying pneumonia and acute illness and dehydration, showing improvement and better control after IV fluids and initiation of a low dose beta selma. 7. Hypertension. 8. Diabetes mellitus, type 2, on oral therapy with elevated glucose through admission secondary to ongoing corticosteroid administration, improving with both long acting and short acting insulins. 9. History of coronary artery disease diagnosed in 2009 with stable angina, having been medically managed previously. 10. Aortic stenosis with aortic valve replacement with mechanical valve on chronic Coumadin therapy, therapeutic. 11. Osteoporosis. PLAN: The patient will continue with current plan of care with aggressive pulmonary hygiene and ongoing antibiotic therapy with Rocephin and azithromycin. We will titrate the Solu-Medrol down to a p.o. dose in the morning with anticipation of discharging. He will continue to be saline locked and encouraged to improve his oral intake to keep his hydration status improve. We will repeat labs and x-rays in the morning and plan to discharge if clinically stable. Until then, we will continue to monitor the patient closely and treat appropriately. #[id number] [facility]
--- NOTE | 2017-10-25 18:28 | DS ---
SUPERVISING PHYSICIAN: Nathan Hanna M.D. DISCHARGE DIAGNOSIS: 1. Acute exacerbation of chronic obstructive pulmonary disease with history of bronchiectasis with community acquired pneumonia as noted with bilateral infiltrates on radiographic studies requiring aggressive initiation of parenteral antibiotics to include Rocephin and azithromycin with the patient showing good clinical response prior to discharge. 2. Leukocytosis, improved with a left shift continued, secondary to #1. 3. Electrolyte imbalance on admission with mild hyponatremia, resolved after IV fluids as well as mild hyperkalemia also resolved. 4. Renal insufficiency with prerenal azotemia secondary to dehydration on admission, improved with IV fluids. 5. Elevated troponin on admission, returning to baseline with an elevated BNP with no chest pains without EKG changes, felt to be secondary to underlying hypoxic event, stress induced from developing pneumonia, although cannot completely rule out a non-ST segment elevation myocardial infarction. 6. Tachycardia, related to underlying pneumonia and acute illness and dehydration, showing improvement and better control with IV fluids and initiation of a low dose beta selma. 7. Hypertension. 8. Diabetes mellitus, type 2, on oral therapy with elevated glucose through admission secondary to ongoing corticosteroid administration, improving with both long acting and short acting insulins. 9. History of coronary artery disease diagnosed in 2009 with stable angina, having been medically managed previously. 10. Aortic stenosis with aortic valve replacement with mechanical valve on chronic Coumadin therapy, therapeutic. 11. Osteoporosis. HISTORY OF PRESENT ILLNESS: Mr. Cook is an 82 year-old male patient who presented to the Emergency Room complaining of increasing productive cough with purulent sputum over the last three weeks with increasing shortness of breath. He does have a significant history of chronic obstructive pulmonary disease with some bronchiectasis. He has been seen in the Urgent Care Clinic the past week and was given a prescription for albuterol but no mention of any antibiotics. He did recently have an EGD done in the past four days by Dr. Puente for evaluation of dysphagia. He also stated he had a couple episodes of choking on food. Laboratory studies on admission to the Emergency Department showed that he had a leukocytosis of 14,900 with a left shift. Chemistries initially showed elevated troponin of 0.08 with patient not having any reported chest pain. Repeat three hours later showed the troponin of 0.08 unchanged with the patient not having any reported chest pains. BNP was slightly up at 256. Electrolytes showed a mild hyponatremia with sodium of 133 with a hyperkalemia with potassium of 5.4. Radiographic studies in the Emergency Room , 2-view chest per radiology interpretation showed bibasilar parenchymal infiltrate. His vital signs showed he was hemodynamically stable with a blood pressure of 129/79 with heart rate of 127, saturation 90% on room air at rest. Given the worsening shortness of breath, productive cough and purulent sputum and radiographic findings consistent for pneumonia bilaterally with a leukocytosis, Dr. Dasilva requested the patient be admitted for initiation of treatment for underlying chronic obstructive pulmonary disease exacerbation with developing pneumonia community acquired. Blood cultures were completed and he was started on antibiotics including Rocephin and azithromycin as well as Solu-Medrol and breathing treatments. He was admitted in stable condition. LABORATORY STUDIES: Initial white count on admission was 14,900. It did go up to a maximum of 19,400, prior to discharge it had gone down to 13. Hemoglobin was 11.5, hematocrit 34.9 at discharge, platelet count was 255,000. RBC indices indicated a microcytic hypochromic anemia. A left shift was noted on differential. Coagulation studies showed initially his PT was 24.7 with an INR of 2.2, after initiation of Coumadin and prior to discharge his INR had become therapeutic at 3.18. Chemistry on admission showed sodium 133, potassium 5.4, carbon dioxide 20, BUN 34, creatinine 1.47, after IV fluids and treatment prior to discharge electrolytes had normalized. Sodium was 136, potassium 4.4, BUN was down to 28, creatinine was down to 0.88. On admission, glucose was 187. Liver functions all showed to be within normal limits. Again, his troponins were elevated initially at 0.08. The second one was 0.7 and then on the morning after admission it had normalized to 0.04. Blood sugars ranged from 79 to 292, prior to discharge blood sugar was 200. MICROBIOLOGY: Sputum culture showed normal tisha at 48 hours. Blood culture showed no growth at 5 days. He had a negative flu test with both A and B by PCR. RADIOLOGY: Radiographic studies initially included a chest x-ray in the Emergency Department and per radiology interpretation showed bibasilar parenchymal infiltrates had developed since previous comparison. He had multiple chest x-rays and prior to discharge the final chest x-ray on 10/13/17 showed no significant interval changes in bibasilar airspace opacities and possible small bilateral pleural effusions. Please see that final report and multiple x-rays for full details. HOSPITAL COURSE: Mr. Cook was admitted as noted above History of Present Illness for pneumonia initiated on aggressive pulmonary hygiene, DuoNeb treatments, Solu-Medrol and antibiotic therapy including Rocephin and Azithromycin. He finished the course of Azithromycin and continued Rocephin until discharge. His Prednisolone was titrated down prior to discharge and he was started on p.o. medication, and was showing to be stable with good response. Blood sugars were controlled with insulin per protocol. He was also started on Protonix prophylactically. Hemodynamically he remained stable. On discharge, his vital signs showed a temperature of 97.9, pulse 95, blood pressure 158/93, respirations 17, satting 95% on room air. It was felt that the patient had clinically shown good improvement and response to treatment, and therefore was to be discharged to continue with treatment in the outpatient setting. PLAN: Mr. Cook was discharged 10/13/17 to have close clinical followup with Dr. Hanna as scheduled on 10/27/17 and to return to the hospital should he have any concerning symptoms. He was continued on antibiotic therapy with Cefdinir, Guaifenesin and a Medrol Dosepak. All other medications prior to discharge were continued. Medications at discharge included: 1. Omnicef 300 mg twice daily for 6 days. 2. Guaifenesin 600 mg twice daily. 3. Medrol Dosepak 4 mg, take as directed. Diet at discharge was diabetic diet. He was told to watch his diet closely and expect some elevation of his blood sugars until he was finished with the Medrol Dosepak. Activity is increase activity as tolerated. Condition on discharge was stable and improved. #[id number] [facility]
== END 2017-10-13 12:51 | disposition home health service (06) | DRG 190 ==
LOC: ER 14:15 → MS 18:41 → OBSVTOIN 18:41
PROVIDERS: ADMIT Nurse Practitioner Family; ATTEND Nurse Practitioner Family
DX: J44.0 Chronic obstructive pulmonary disease with (acute) lower respiratory infection (principal); J18.9 Pneumonia, unspecified organism; I21.4 Non-ST elevation (NSTEMI) myocardial infarction; E87.1 Hypo-osmolality and hyponatremia; J45.901 Unspecified asthma with (acute) exacerbation; J44.1 Chronic obstructive pulmonary disease with (acute) exacerbation; E87.5 Hyperkalemia; E86.0 Dehydration; R74.8 Abnormal levels of other serum enzymes; R09.02 Hypoxemia; I10 Essential (primary) hypertension; N28.9 Disorder of kidney and ureter, unspecified; E11.9 Type 2 diabetes mellitus without complications; I25.119 Atherosclerotic heart disease of native coronary artery with unspecified angina pectoris; M81.0 Age-related osteoporosis without current pathological fracture; Z95.2 Presence of prosthetic heart valve; Z79.01 Long term (current) use of anticoagulants

== ENCOUNTER 2017-11-21 03:36 | Emergency (ER) | payer MEDICARE, OTHER ==
[2017-11-21 04:03] VITALS: TEMP 97.7
[2017-11-21 05:20] VITALS: O2SAT 100
--- NOTE | 2017-11-21 05:43 | ED.PDOC ---
History of Present Illness - General Chief Complaint: General Stated Complaint: "just feeling sick at my stomach" Time Seen by Provider: 11/21/17 04:04 Source: patient Exam Limitations: no limitations - History of Present Illness Initial Comments: the patient is an 82-year-old male presenting to the emergency room at around 4 AM this morning secondary to not being able to sleep and just not feeling very good. He is not having cough. He is not short of breath. He is not having chest pain. He is not having a headache. He did not fall. No new aches or pains. No nausea or vomiting. No syncope or near-syncope. No vision changes. No difficulties with ambulation. He reports that he went to bed about 9:30 or 10:30 last night and slept until 1:30 this morning and then has been unable to go back to sleep. He tried calling his family members but was unable to get hold of any of them. He did get anxious and started feeling poorly. At that point he decided to come up to the emergency room. Of significant note the patient was hospitalized for a period of a couple of weeks approximately 4 weeks ago for pneumonia. He is not having any symptoms of recurrent pneumonia. The patient mainly seems anxious at this point. Timing/Duration: unsure Severity: mild Improving Factors: nothing Worsening Factors: nothing Associated Symptoms: denies symptoms Allergies/Adverse Reactions: Allergies Sulfa Antibiotics Allergy (Verified 11/21/17 04:03) Unknown Home Medications: Ambulatory Orders Albuterol Sulfate Nebs [Proventil Nebs] 2.5 mg INH BID 10/09/17 Aspirin 325 mg PO BID PRN 10/09/17 Budesonide (Inhalation) [Budesonide] 0.25 mg INH BID 10/09/17 Calcium 600 mg PO DAILY 10/09/17 Denosumab [Prolia] 60 mg SC .[id number] 10/09/17 Gabapentin 300 mg PO BEDTIME 10/09/17 Lisinopril 5 mg PO QAM 10/09/17 Lisinopril 10 mg PO BEDTIME 10/09/17 Metformin HCl 500 mg PO BID 10/09/17 Nitroglycerin 0.4 mg Tab [Nitrostat] 0.4 mg SL Q5MIN PRN 10/09/17 Omeprazole 40 mg PO DAILY 10/09/17 Warfarin Sodium [Coumadin] 2.5 mg PO DAILY 10/09/17 diphenhydrAMINE HCL [Benadryl] 25 mg PO DAILY 10/09/17 Cefdinir [Omnicef] 300 mg PO BID 6 Days #12 cap 10/13/17 Methylprednisolone [Medrol Dose Vinny] 4 mg PO DAILY #1 pack 10/13/17 guaiFENesin ER TAB [Mucinex Tab] 600 mg PO BID tab 10/13/17 Review of Systems - Review of Systems Constitutional: States: no symptoms reported EENTM: States: no symptoms reported Respiratory: States: no symptoms reported Cardiology: States: no symptoms reported Gastrointestinal/Abdominal: States: no symptoms reported Genitourinary: States: no symptoms reported Musculoskeletal: States: no symptoms reported Skin: States: no symptoms reported Neurological: States: anxiety Endocrine: States: no symptoms reported All other Systems: No Change from Baseline Past Medical History (General) - Patient Medical History Hx Seizures: No Hx Stroke: No Hx Dementia: Yes Hx Asthma: Yes Hx of COPD: Yes Hx Cardiac Disorders: Yes Hx Congestive Heart Failure: No Hx Pacemaker: No Hx Hypertension: Yes Hx Diabetes: No Hx Gastroesophageal Reflux: Yes Hx Cancer: Yes - Skin CA's Hx MRSA: No - Vaccination History Hx Influenza Vaccination: Yes - unknown Hx Pneumococcal Vaccination: - unknown - Social History Hx Tobacco Use: No Hx Chewing Tobacco Use: No Hx Alcohol Use: No Hx Substance Use: No Hx Physical Abuse: No Hx Emotional Abuse: No Hx Suspected Abuse: No Family Medical History - Family History Father Family History: Unknown Living Status: Hx Cardiac Disease: Yes - mom/dad Hx Family Diabetes: Yes - brother Physical Exam - Physical Exam General Appearance: Alert, Anxious, No apparent distress Eye Exam: right other - mild chronic decreased vision from his right eye apparently Ears, Nose, Throat: normal ENT inspection, other - hearing is chronically decreased bilaterally Neck: non-tender, supple Respiratory: lungs clear, normal breath sounds, no respiratory distress, no accessory muscle use Cardiovascular/Chest: normal peripheral pulses, no edema, other - regular rate Peripheral Pulses: radial,right: 2+, radial,left: 2+, dorsalis pedis,right: 2+, dorsalis pedis,left: 2+ Gastrointestinal/Abdominal: non tender, soft Rectal Exam: deferred Back Exam: no CVA tenderness, no vertebral tenderness Extremity: non-tender, normal inspection, no pedal edema, normal capillary refill 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 Workup and monitoring failed to show any other significant pathology. The patient's blood pressures are mildly elevated however he is fairly anxious. He was given another dose of his lisinopril for that. Blood pressures did improve at times when he was more relaxed. The patient is discharged home at sunrise. He needs to avoid sleeping during the day. He needs to talk with his family and his primary care doctor about his anxiety and about a plan of action for nights when he is having some insomnia. he should also try to avoid going to bed before midnight , as in his age group 4-5 hours of sleep per night is all that should really be expected. If he goes to sleep too early he will simply wake up in the middle of the night. ER warnings were given for any significant worsening. - Results/Orders Results/Orders: Laboratory Tests 11/21/17 11/21/17 11/21/17 04:35 04:35 04:35 WBC 6.0 RBC 4.86 Hgb 12.4 L Hct 38.6 L MCV 79.6 L MCH 25.5 L MCHC 32.2 L RDW 15.8 H Plt Count 188 MPV 8.6 Absolute Neuts (auto) 4.30 Absolute Lymphs (auto) 1.00 Absolute Monos (auto) 0.60 Absolute Eos (auto) 0.10 Absolute Basos (auto) 0.00 Neutrophils % 71.8 Lymphocytes % 17.0 L Monocytes % 9.1 H Eosinophils % 1.5 Basophils % 0.6 PT 23.7 H* INR 2.110 PTT (SP) 44.0 H Sodium 140 Potassium 4.9 Chloride 110 Carbon Dioxide 24 Anion Gap 10.9 L BUN 27 H Creatinine 1.21 BUN/Creatinine Ratio 22.3 H Random Glucose 95 Serum Osmolality 284.3 Calcium 9.9 Total Bilirubin 0.6 AST 22 ALT 13 Alkaline Phosphatase 43 Creatine Kinase 56 CK-MB (CK-2) 2.9 CK-MB (CK-2) % Not Reportable Troponin I 0.02 Serum Total Protein 6.9 Albumin 4.0 Globulin 2.9 Albumin/Globulin Ratio 1.4 Flu swab was negative Departure - Departure Clinical Impression: Anxiety about health Disposition: Discharge to Home or Self Care Condition: Fair Departure Forms: ED Discharge - Pt. Copy, Patient Portal Self Enrollment Instructions: DI for Anxiety -- Adult Diet: regular diet Activity: increase activity as tolerated Referrals: Nathan Hanna MD [Primary Care Provider] - 1-2 Weeks Home Medications: Ambulatory Orders Albuterol Sulfate Nebs [Proventil Nebs] 2.5 mg INH BID 10/09/17 Aspirin 325 mg PO BID PRN 10/09/17 Budesonide (Inhalation) [Budesonide] 0.25 mg INH BID 10/09/17 Calcium 600 mg PO DAILY 10/09/17 Denosumab [Prolia] 60 mg SC .[id number] 10/09/17 Gabapentin 300 mg PO BEDTIME 10/09/17 Lisinopril 5 mg PO QAM 10/09/17 Lisinopril 10 mg PO BEDTIME 10/09/17 Metformin HCl 500 mg PO BID 10/09/17 Nitroglycerin 0.4 mg Tab [Nitrostat] 0.4 mg SL Q5MIN PRN 10/09/17 Omeprazole 40 mg PO DAILY 10/09/17 Warfarin Sodium [Coumadin] 2.5 mg PO DAILY 10/09/17 diphenhydrAMINE HCL [Benadryl] 25 mg PO DAILY 10/09/17 Cefdinir [Omnicef] 300 mg PO BID 6 Days #12 cap 10/13/17 Methylprednisolone [Medrol Dose Vinny] 4 mg PO DAILY #1 pack 10/13/17 guaiFENesin ER TAB [Mucinex Tab] 600 mg PO BID tab 10/13/17 Additional Instructions: the patient is an 82-year-old male presenting to the emergency room secondary to insomnia and some resultant anxiety. Workup and monitoring failed to show any other significant pathology. The patient's blood pressures are mildly elevated however he is fairly anxious. He was given another dose of his lisinopril for that. Blood pressures did improve at times when he was more relaxed. The patient is discharged home at sunrise. He needs to avoid sleeping during the day. He needs to talk with his family and his primary care doctor about his anxiety and about a plan of action for nights when he is having some insomnia. he should also try to avoid going to bed before midnight , as in his age group 4-5 hours of sleep per night is all that should really be expected. If he goes to sleep too early he will simply wake up in the middle of the night. ER warnings were given for any significant worsening.
[2017-11-21] MEDS: LISINOPRIL 10 MG TAB PO ONE (05:48)
[2017-11-21 06:43] VITALS: BP 189/93
== END 2017-11-21 06:43 | disposition home or self-care (01) ==
LOC: ER 03:36
DX: F41.9 Anxiety disorder, unspecified (principal); J44.9 Chronic obstructive pulmonary disease, unspecified; F03.90 Unspecified dementia, unspecified severity, without behavioral disturbance, psychotic disturbance, mood disturbance, and anxiety; I10 Essential (primary) hypertension; K21.9 Gastro-esophageal reflux disease without esophagitis; Z85.828 Personal history of other malignant neoplasm of skin; Z79.01 Long term (current) use of anticoagulants; Z79.899 Other long term (current) drug therapy; Z79.82 Long term (current) use of aspirin; Z88.2 Allergy status to sulfonamides

== ENCOUNTER 2017-12-24 15:32 | Inpatient (IN) | payer MEDICARE, OTHER ==
--- NOTE | 2017-12-24 15:38 | HP ---
SUPERVISING PHYSICIAN: Devyn Huynh M.D. CHIEF COMPLAINT: Right hip pain. HISTORY OF PRESENT ILLNESS: This is an 82 year-old male patient who was downtown last week and he fell and hit a curb. He stumbled onto his right knee and then hit on his right hip. His daughter had to be called to help him into a vehicle to get home, but once at home he mostly complained of pain in that right knee. It was swollen and they applied ice for several days. The knee pain improved but he became more and more unable to get up and around. There was some pain to the right hip. Today, he went to see his primary care physician, Dr. Nathan Hanna, and an x-ray of the right hip was done and he was found to have a right hip fracture. A hip x-ray per radiology interpretation shows acute femoral neck fracture. Dr. Hanna called me for admission. PAST MEDICAL HISTORY: 1. Chronic obstructive pulmonary disease. 2. Diabetes mellitus type 2. 3. Hyperlipidemia. 4. Coronary artery disease. 5. Benign prostatic hypertrophy. 6. Aortic stenosis with aortic valve replacement. 7. Hypertension. 8. Seasonal allergies. 9. Osteoporosis. 10. Skin cancers. 11. History of atrial fibrillation. PAST SURGICAL HISTORY: 1. Tonsillectomy. 2. Aortic valve replacement with a mechanical valve. 3. Esophagogastroduodenoscopy times 2. CURRENT MEDICATIONS: Per the EMR and awaiting verification. ALLERGIES: SULFA ANTIBIOTICS. FAMILY HISTORY: Positive for colon cancer, celiac disease, Crohn's disease and ulcerative colitis. SOCIAL HISTORY: The patient is retired. He is . He lives in [place]. He has a past history of smoking but quit many years ago. He denies any ETOH or illicit drug use. REVIEW OF SYSTEMS: Ten point review of systems is negative except for as per History of Present Illness. PHYSICAL EXAMINATION: VITAL SIGNS: Blood pressure 120/70, pulse 76, respiratory rate 16, O2 sat is 975 on room air. GENERAL: This is an 82 year-old slender male patient who is lying in his hospital bed. He is in no acute distress. HEENT: Normocephalic and atraumatic. Pupils are equal and reactive. Oropharynx is clear. NECK: Supple without mass. RESPIRATORY: Essentially clear to auscultation bilaterally. CHEST: There is equal rise and fall of the chest with inspiration and expiration. CARDIOVASCULAR: Slightly irregular rhythm, regular rate. GASTROINTESTINAL: Abdomen is soft, nondistended, non-tender. Bowel sounds are positive. EXTREMITIES: No cyanosis, clubbing or edema. He does have tenderness to palpation over the right lateral hip area but no bruising or ecchymosis noted. NEUROLOGIC: He is awake, alert and oriented times three. LABORATORY: WBCs are 6.1, hemoglobin 11.7, hematocrit 36, platelets 239. Coags and chemistries are pending. RADIOLOGY: Knee x-ray per radiology interpretation shows no acute fracture or dislocation. Chest x-ray per radiology interpretation shows residual consolidations with interval improvement. Hip x-ray is as per the History of Present Illness. All other labs and films have been reviewed via the EMR. ASSESSMENT: 1. Right hip fracture status post same level fall one week ago. 2. Chronic obstructive pulmonary disease. 3. Diabetes mellitus type 2. 4. Coronary artery disease. 5. Benign prostatic hypertrophy. 6. History of atrial fibrillation. 7. Hypertension. 8. Osteoporosis. 9. History of skin cancers. PLAN: We will admit the patient to the hospital. I have initiated the preoperative orders for hip surgery tomorrow. I will correct the patient's INR after results are back. Accu-Cheks with sliding scale insulin have been started. He will be NPO at midnight. He has been typed and crossed for blood products. I have consulted Dr. Elizabeth with anticipation of surgical intervention in the morning. We will follow the patient postoperatively. Restart his home medications when available. We will continue to monitor the patient closely and follow as needed. Dr. Huynh is the collaborating physician available for consultation. #[id number] [facility]
[2017-12-24] MEDS ORDERED: ALBUTEROL SULFATE 2.5 MG/3 ML VIAL NEB PRN (16:03)
[2017-12-24] MEDS ORDERED: LACTATED RINGERS 1,000 ML IVS PRN (16:03)
[2017-12-24] MEDS ORDERED: SODIUM CHLORIDE 0.9% (FLUSH) 10 ML SYG IV PRN ×2 (16:03)
[2017-12-24] MEDS ORDERED: ONDANSETRON INJ 4 MG/2 ML VIAL IV PRN (16:03)
[2017-12-24] MEDS ORDERED: DEXTROSE 50% 25 GM/50 ML SYG IV PRN (16:13)
[2017-12-24] MEDS ORDERED: GLUCAGON INJ 1 MG VIAL SUBCU PRN (16:13)
[2017-12-24] MEDS ORDERED: IV SET AND CAP CHANGE INJ INJ SCH ×2 (16:30)
--- NOTE | 2017-12-24 16:54 | RAD ---
EXAM DESCRIPTION: Chest,1 View CLINICAL HISTORY: copd COMPARISON: 10/13/2017 FINDINGS: Cardiac silhouette is within normal limits. Aeration is improving at the right lung base. There is residual consolidation and atelectasis at each lung base, left greater than right. IMPRESSION: Residual consolidations with interval improvement. Electronically signed by: Robert Figueroa 12/24/2017 4:53 PM OFFICE ASSISTANCE
--- NOTE | 2017-12-24 16:55 | RAD ---
EXAM DESCRIPTION: Knee,Right 2 or More Views CLINICAL HISTORY: trauma COMPARISON: None FINDINGS: 2 views were submitted. No fracture or dislocation is identified. Bone marrow attenuation is unremarkable. No radiopaque foreign body is identified. IMPRESSION: No acute fracture or dislocation. Electronically signed by: Robert Figueroa 12/24/2017 4:54 PM [facility]
[2017-12-24] MEDS ORDERED: PHYTONADIONE INJ 10 MG/ML AMP IM ONE (18:09)
[2017-12-24] MEDS: INSULIN LISPRO 100 UNITS/ML PEN SUBCU SCH ×2 (19:17→21:37)
[2017-12-24] MEDS ORDERED: SODIUM CHLORIDE 0.9% 500ML 500 ML ONE (19:52)
[2017-12-24] MEDS: ALBUTEROL SULFATE 2.5 MG/3 ML VIAL NEB SCH (20:15)
[2017-12-24] MEDS: MORPHINE SULFATE INJ 10 MG/ML VIAL IV PRN (20:25)
[2017-12-24] MEDS ORDERED: SODIUM CHLORIDE 0.9% (FLUSH) 10 ML SYG IV SCH (21:00)
[2017-12-24] MEDS ORDERED: GABAPENTIN 300 MG CAP PO SCH (23:30)
[2017-12-25] MEDS: ALBUTEROL SULFATE 2.5 MG/3 ML VIAL NEB SCH ×4 (00:40→15:46)
[2017-12-25] MEDS ORDERED: SODIUM CHLORIDE 0.9% 250ML 250 ML ONE (05:20)
[2017-12-25] MEDS ORDERED: CEFAZOLIN SODIUM 2 GM IVPB ONE (05:20)
[2017-12-25] MEDS ORDERED: VANCOMYCIN HCL INJ 1,000 MG VIAL IVPB ONE (05:20)
[2017-12-25 05:41] VITALS: O2SAT 96
[2017-12-25] MEDS ORDERED: ceFAZolin SODIUM 2 GM in SODIUM CHLORIDE 0.9% 100ML 100 ML IVPB ONE (07:00)
[2017-12-25] MEDS: INSULIN LISPRO 100 UNITS/ML PEN SUBCU SCH ×2 (07:49→12:11)
[2017-12-25] MEDS: VANCOMYCIN HCL INJ 1,000 MG in SODIUM CHLORIDE 0.9% 250ML 250 ML IVPB ONE ×2 (07:59→13:28)
[2017-12-25] MEDS ORDERED: diphenhydrAMINE HCL 25 MG CAP PO SCH (09:00)
[2017-12-25] MEDS ORDERED: guaiFENesin ER TAB 600 MG TAB PO SCH (09:00)
[2017-12-25] MEDS ORDERED: LISINOPRIL 5 MG TAB PO SCH (09:00)
[2017-12-25] MEDS ORDERED: metFORMIN HCL 500 MG TAB PO SCH (09:00)
[2017-12-25] MEDS ORDERED: CITALOPRAM HBR 20 MG TAB PO SCH (09:00)
[2017-12-25] MEDS ORDERED: BISACODYL SUPPOSITORY 10 MG PR ONE (10:48)
[2017-12-25] MEDS: MORPHINE SULFATE INJ 10 MG/ML VIAL IV PRN (11:05)
[2017-12-25] MEDS ORDERED: ENOXAPARIN SODIUM 60 MG/0.6 ML SYG SUBCU SCH (13:30)
[2017-12-25] MEDS: HYDROcodone 5MG/APAP 325MG 1 EA TAB PO PRN ×2 (14:08→14:51)
[2017-12-25 14:32] VITALS: BP 140/77; TEMP 98.2
[2017-12-25] MEDS ORDERED: LISINOPRIL 10 MG TAB PO SCH (21:00)
--- NOTE | 2017-12-26 14:24 | DS ---
SUPERVISING PHYSICIAN: Devyn Huynh MD DISCHARGE DIAGNOSIS: 1. Right hip fracture status post same level fall one week ago. 2. Chronic obstructive pulmonary disease. 3. Diabetes mellitus type 2. 4. Coronary artery disease. 5. Benign prostatic hypertrophy. 6. History of atrial fibrillation. 7. Hypertension. 8. Osteoporosis. 9. History of skin cancers. HISTORY OF PRESENT ILLNESS: This is an 82 year-old male patient who was downtown last week and fell and hit the curb. He stumbled onto his right knee and then hit on his right hip. His daughter had to be called to help him into the vehicle to get home but once home he complained of pain in the right knee. It was swollen and they applied ice for several days. The knee pain improved but he had more and more difficulty getting around and getting out of bed. He began to have pain in the right hip. He went to see his primary care physician , Dr. Lamberto Hanna, and was found to have a right femoral neck fracture. I was called for admission to the hospital and Dr. Elizabeth was consulted. After review of his records and examination of the patient, it was felt that due to his multiple comorbidities and age that it might be beneficial for him to have his hip surgery at another facility. The patient was to be transferred to a facility in the [facility] for repair of that right hip fracture. Multiple facilities were called in the [facility] area. The patient was either refused admission due to high census or recommended to be placed on a weight lift, again due to their high census. The family refused. There was an available room at [facility] but the family refused to be transferred to that facility. The family and the patient decided to leave the hospital against medical advice and drive him to a facility in the [facility]. There was lengthy discussion with the family of the dangers of going in a vehicle and going to another hospital. The family refused those risks and decided they would still take the patient out of the hospital against medical advice. The patient does have a history of aortic stenosis with an aortic valve replacement. He was given 55 mg of Lovenox subcutaneous prior to discharge. Records and films were given to the patient's family to take to another facility and the patient left against medical advice. DISCHARGE MEDICATIONS: 1. Albuterol. 2. Benadryl. 3. Aspirin. 4. Metformin. 5. Gabapentin. 6. Lisinopril. 7. Warfarin. 8. Calcium. 9. Prolia. 10. Lisinopril. 11. Guaifenesin. 12. Citalopram. 13. Ranitidine. Dr. Huynh is the collaborating physician available for consultation. #[id number] [facility]
--- NOTE | 2017-12-26 16:02 | CONS ---
DATE OF CONSULTATION: 12/25/17 CHIEF COMPLAINT: Right hip pain. HISTORY OF PRESENT ILLNESS: Mr. Cook is an 82 year-old male with a history of pain in the right hip. He fell on that one day prior to presentation and was seen by Dr. Hanna on an outpatient basis. Dr. Hanna identified a subcapital fracture of the femur. Dr. Hanna consulted me. Mr. Cook denies any other pain. Denies any radiation of pain and denies any neurologic symptoms. PAST MEDICAL HISTORY: 1. Chronic obstructive pulmonary disease. 2. Diabetes. 3. Hyperlipidemia. 4. Coronary artery disease. 5. Benign prostatic hypertrophy. 6. Aortic stenosis. 7. Hypertension. 8. Osteoporosis. 9. Skin cancer. 10. Atrial fibrillation. PAST SURGICAL HISTORY: 1. Cardiac valve replacement. 2. Esophagogastroduodenoscopy. 3. Tonsillectomy. CURRENT MEDICATIONS: Please see the current EMR for a verified list. ALLERGIES: SULFA. FAMILY HISTORY: None pertinent to today's complaint. SOCIAL HISTORY: He denies alcohol or drug use and currently is not a smoker, but does have a history. REVIEW OF SYSTEMS: Negative except as indicated in the History of Present Illness. PHYSICAL EXAMINATION: VITAL SIGNS: Blood pressure 120/70, pulse 76, O2 sat 97.5 on room air, respirations 16. MENTAL STATUS: The patient is awake, alert, and is able to give a good history and participate in the physical. The patient is oriented to person, place and time. SKIN: Normal tone and turgor. HEENT: Normocephalic, atraumatic. Pupils equal, round and reactive. Mucosal membranes are moist. NECK: Normal range of motion. No thyromegaly, no lymphadenopathy. CHEST: Normal respiratory excursion. CARDIAC: Regular rate and rhythm. No murmurs, rubs or gallops. MUSCULOSKELETAL: The bilateral upper extremities are without evidence of trauma. Sensation is intact in the extremities and they are warm and well perfused. He has intact sensation without deformity. The left lower extremity shows no evidence of trauma. Range of motion of the hip does cause pain on the contralateral side. Sensation is intact. It is warm and well perfused. The right lower extremity shows severe pain with attempted range of motion. Sensation is intact. It is warm and well perfused. There is no overall deformity and strength is 5/5 in plantar flexion of the ankle. X-RAYS: X-rays show a subcapital femoral neck fracture. ASSESSMENT: 1. Subcapital femoral neck fracture. PLAN: At this point he and I have talked about options for him which would include hemiarthroplasty. Just given his fracture I think that would be the most prudent. We are going to get his preoperative clearance and we will get him set up for that. #[id number] [facility]
== END 2017-12-25 15:00 | disposition left against medical advice (07) | DRG 536 ==
LOC: MS 15:32
PROVIDERS: ADMIT Nurse Practitioner Acute Care; ATTEND Nurse Practitioner Acute Care
DX: S72.011A Unspecified intracapsular fracture of right femur, initial encounter for closed fracture (principal); J44.9 Chronic obstructive pulmonary disease, unspecified; E11.9 Type 2 diabetes mellitus without complications; E78.5 Hyperlipidemia, unspecified; I25.10 Atherosclerotic heart disease of native coronary artery without angina pectoris; N40.0 Benign prostatic hyperplasia without lower urinary tract symptoms; I10 Essential (primary) hypertension; M19.90 Unspecified osteoarthritis, unspecified site; I48.91 Unspecified atrial fibrillation; Z95.2 Presence of prosthetic heart valve; Z88.2 Allergy status to sulfonamides; Z87.891 Personal history of nicotine dependence; W19.XXXA Unspecified fall, initial encounter; Y92.480 Sidewalk as the place of occurrence of the external cause

== ENCOUNTER → 2018-01-06 | Outpatient (CLI) | payer MEDICARE, OTHER | LOC: GT 07:35 | PROVIDERS: ATTEND Family Medicine | DX: N39.0 Urinary tract infection, site not specified (principal) ==

== ENCOUNTER 2018-01-10 14:01 | Inpatient (IN) | payer MEDICARE, OTHER ==
--- NOTE | 2018-01-10 14:23 | ED.PDOC ---
History of Present Illness - General Chief Complaint: General Stated Complaint: right hip pain Time Seen by Provider: 01/10/18 14:06 Source: patient Exam Limitations: no limitations Additional Information: 82 YEAR OLD FROM GROUP HOME FOR EVALUATION OF PAIN IN THE RIGHT HIP HE HAD HIP SURGERY HERE LAST WEEK HE REPORTS NO NEW TRAUMA - History of Present Illness Timing/Duration: 24 hours Severity: moderate Improving Factors: immobilization Worsening Factors: movement Associated Symptoms: denies symptoms Allergies/Adverse Reactions: Allergies Sulfa Antibiotics Allergy (Verified 11/21/17 04:03) Unknown Home Medications: Ambulatory Orders Albuterol Sulfate Nebs [Proventil Nebs] 2.5 mg INH BID 10/09/17 Aspirin 325 mg PO BID PRN 10/09/17 Calcium 600 mg PO DAILY 10/09/17 Denosumab [Prolia] 60 mg SC .[id number] 10/09/17 Gabapentin 300 mg PO BEDTIME 10/09/17 Lisinopril 5 mg PO QAM 10/09/17 Lisinopril 10 mg PO BEDTIME 10/09/17 Metformin HCl 500 mg PO BID 10/09/17 Warfarin Sodium [Coumadin] 2.5 mg PO BEDTIME 10/09/17 diphenhydrAMINE HCL [Benadryl] 25 mg PO DAILY 10/09/17 guaiFENesin ER TAB [Mucinex Tab] 600 mg PO BID tab 10/13/17 Citalopram Hydrobromide [Celexa] 10 mg PO DAILY 12/24/17 raNITIdine HCL [Zantac] 150 mg PO BID 12/24/17 Review of Systems - Review of Systems Constitutional: States: no symptoms reported EENTM: States: no symptoms reported Respiratory: States: no symptoms reported Cardiology: States: no symptoms reported Gastrointestinal/Abdominal: States: no symptoms reported Genitourinary: States: no symptoms reported Musculoskeletal: States: no symptoms reported Skin: States: no symptoms reported Neurological: States: no symptoms reported Endocrine: States: no symptoms reported Hematologic/Lymphatic: States: no symptoms reported Past Medical History (General) - Patient Medical History Hx Seizures: No Hx Stroke: No Hx Dementia: Yes Hx Asthma: Yes Hx of COPD: Yes Hx Cardiac Disorders: Yes - Atrial fib Hx Congestive Heart Failure: No Hx Pacemaker: No Hx Hypertension: Yes Hx Diabetes: No Hx Gastroesophageal Reflux: Yes Hx Cancer: Yes - Skin CA's Hx MRSA: No - Vaccination History Hx Influenza Vaccination: Yes - unknown Hx Pneumococcal Vaccination: - unknown - Social History Hx Tobacco Use: No Hx Chewing Tobacco Use: No Hx Alcohol Use: No Hx Substance Use: No Hx Physical Abuse: No Hx Emotional Abuse: No Hx Suspected Abuse: No - Activities of Daily Living [facility] (if applicable[facility] Family Medical History - Family History Father Family History: Unknown Living Status: Hx Cardiac Disease: Yes - mom/dad Hx Family Diabetes: Yes - brother Physical Exam - Physical Exam General Appearance: Alert, Emaciated Eye Exam: bilateral normal Ears, Nose, Throat: hearing grossly normal, normal ENT inspection, normal pharynx Neck: non-tender, full range of motion, supple Respiratory: chest non-tender, lungs clear, normal breath sounds, no respiratory distress, no accessory muscle use, respiratory distress Cardiovascular/Chest: normal peripheral pulses, regular rate, rhythm, no edema, no gallop, no 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 Gastrointestinal/Abdominal: normal bowel sounds, non tender, soft, no organomegaly Back Exam: normal inspection, no CVA tenderness, no vertebral tenderness 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 Copy, Patient Portal Self Enrollment Referrals: Nathan Hanna MD [Primary Care Provider] - 1-2 Weeks Home Medications: Ambulatory Orders Albuterol Sulfate Nebs [Proventil Nebs] 2.5 mg INH BID 10/09/17 Aspirin 325 mg PO BID PRN 10/09/17 Calcium 600 mg PO DAILY 10/09/17 Denosumab [Prolia] 60 mg SC .[id number] 10/09/17 Gabapentin 300 mg PO BEDTIME 10/09/17 Lisinopril 5 mg PO QAM 10/09/17 Lisinopril 10 mg PO BEDTIME 10/09/17 Metformin HCl 500 mg PO BID 10/09/17 Warfarin Sodium [Coumadin] 2.5 mg PO BEDTIME 10/09/17 diphenhydrAMINE HCL [Benadryl] 25 mg PO DAILY 10/09/17 guaiFENesin ER TAB [Mucinex Tab] 600 mg PO BID tab 10/13/17 Citalopram Hydrobromide [Celexa] 10 mg PO DAILY 12/24/17 raNITIdine HCL [Zantac] 150 mg PO BID 12/24/17
--- NOTE | 2018-01-10 15:00 | RAD ---
PROCEDURE: Pelvis Clinical History: FALL Indication: Same as above Comparison: None . Technique: Single frontal view of the pelvis Findings: There is no evidence of acute fractures or dislocations involving the bones of the pelvis including the bilateral hip joints, the visualized proximal femora and the sacrum. There is an intact right hip arthroplasty There is no evidence of periosteal reactions involving the pelvic bones. The joint spaces of the pelvis are relatively well-maintained. The visualized portion of the lower lumbar spine shows mild degenerative change. The soft tissues are radiographically unremarkable. Impression: There are no acute findings on the single frontal projection of the pelvis Place of interpretation: [id number]. Electronically signed by: Herve Ochoa MD 01/10/2018 2:59 PM [facility] Workstation: [employer]
[2018-01-10] MEDS ORDERED: MORPHINE SULFATE INJ 10 MG/ML VIAL IV ONE (15:14)
[2018-01-10] MEDS ORDERED: PHYTONADIONE INJ 10 MG/ML AMP IM ONE (15:53)
--- NOTE | 2018-01-10 17:01 | HP ---
HISTORY OF PRESENT ILLNESS: This 82 year-old white male is a resident at [facility]. He apparently was walking downtown examining a building when he tripped and fell on a curb with injury to his right knee and hip region. He subsequently went home where he lives at home alone but came into the office of Dr. Hanna, his primary care physician, on the 24 of December for examination. He was unable to ambulate. In the office he was found to have a subcapital fracture and was referred to the Emergency Room for eventual hospitalization. He was admitted to the hospital on 12/24/17 by Mary Aguirre. The next day when examined further by Dr. Elizabeth, orthopedic surgeon, and by Anesthesia, it was determined that because of the patient's significant co-morbidities, the patient would be transferred to a [facility] assistance in the significant bony fracture. He apparently eventually went with family to [facility], and spent the evening of December 25 in the Emergency Room. He was subsequently stabilized on the and had right hemiarthroplasty performed on Thursday, the 27 of December. He had some transient low blood pressure in the hospital. He was continued on Coumadin and eventually had surgical procedure successfully performed on 12/27/17, and was discharged from [place] on 12/31/17. His lewis are to come out 10 days from today approximately. He was transferred 10 days ago to [facility] for rehabilitation and for recuperation. He is unable to participate since then because of severe weakness and debility. Increasing pain in the right hip as well as decreased eating and appetite and drinking leg him to be sent to the Emergency Room for evaluation. He had a fairly large hematoma and ecchymosis of the right hip. In the Emergency Room, he was found to have a significantly prolonged INR. He was given some Vitamin K parenterally but because of significantly low sodium of 124, his hemoglobin being very low compared to what it was before surgery, low grade temperature of 99.7, prolonged INR, potassium 5.1 and requiring stabilization with diabetes, etc., he is admitted to the hospital for specific management and followup. PAST MEDICAL HISTORY: 1. Episodes of chronic obstructive pulmonary disease. 2. Diabetes mellitus type 2. 3. Hyperlipidemia. 4. History of coronary artery disease. 5. Benign prostatic hypertrophy. 6. History of aortic stenosis with aortic valve replacement in 1998. 7. Hypertension. 8. Seasonal allergies. 9. Osteoporosis. 10. History of skin cancers. 11. History of atrial fibrillation. 12. Recent right hip subcapital fracture repaired surgically. PAST SURGICAL HISTORY: 1. Tonsillectomy. 2. Aortic valve replacement with mechanical valve in 1998. 3. Esophagogastroduodenoscopy on 2 occasions. 4. Right hemiarthroplasty of the hip performed on 12/27/17 at [facility]. CURRENT MEDICATIONS: Please refer to nurses' notes for a complete list of verified home medicines being taken at the [facility]. ALLERGIES: SULFA MEDICINES. FAMILY HISTORY: Positive for colon cancer, celiac disease, Crohn's disease and ulcerative colitis. 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 He is . He lives in [place] by himself before his fractured hip, but now is a resident in [facility] with family close by. REVIEW OF SYSTEMS: Some weight loss recently. No significant fever or chills noted. HEENT: Decreased hearing and vision. LUNGS: No significant cough but he does have some wheezing occasionally. CARDIOVASCULAR: No significant chest pains or palpitations, but his blood pressure seems to be low at times as well as a slow pulse. GASTROINTESTINAL: Some mild epigastric discomfort upon palpation, otherwise flat abdomen, nondistended. No organomegaly or masses noted. Somewhat diminished bowel tones. EXTREMITIES: Right leg is somewhat tender after surgery on the right hip 2 weeks ago. NEUROLOGIC: No focal neurological deficits but the patient is generally very weak. He is able to answer questions at times, otherwise his family tends to answer the questions for him which is helpful. PHYSICAL EXAMINATION: VITAL SIGNS: Temperature 99.7, pulse 92, blood pressure 132/70, pulse oximetry 98% on room air. Weight by built-in bed scale is 51.4 kilos. GENERAL: The patient is lying in the bed, very weak and somewhat pale. Significant muscle loss evident. He is able to communicate at times. HEENT: Decreased vision is evident. Have to speak up loudly in order to be heard. CHEST: Lungs have some rhonchi more so on the left than the right. CARDIOVASCULAR: No significant chest pains or palpitations. ABDOMEN: Somewhat diminished bowel tones, tender in the epigastrium. No organomegaly evident. EXTREMITIES: Fairly extensive ecchymosis with an elongated area of induration suggesting a hematoma underneath the incision right hip. Lewis are in place. Some old blood drainage minimally noted. Somewhat diminished range of motion evident. NEUROLOGIC: No focal neurological deficits. The patient is otherwise resting but extremely weak generally. LABORATORY: White count 10,100, hemoglobin 9.7 where it used to be 11.7 prior to the surgical procedure. He has a microcytic/hypochromic presentation. Platelets are 332,000. INR is prolonged at 3.47 where it was 1.47 prior to surgery. Chemistries show potassium 5.1, sodium extremely low at 124, it was 139 before. CO2 is low at 17, BUN 23, creatinine 0.96, glucose 120, osmolality low at 254. Bilirubin 1.1, liver enzymes normal. Albumin 3.5. Urinalysis is pending. No cultures at this time yet. RADIOLOGY: Pelvic x-ray is performed and shows no acute findings of a single view pelvic x-ray. ASSESSMENT: 1. Significant hyponatremia requiring supportive care no doubt contributing symptomatically to the patient's symptoms. 2. Prolonged INR with the patient on Coumadin with hematoma a possible complication in the right hip with orthopedic evaluation to continue. 3. Significant anemia, worse than it was before surgery. 4. History of constipation. 5. Mild fever with temperature 99.7. 6. History of aortic stenosis and aortic valve replacement on Coumadin therapy. 7. Hyperkalemia. 8. Chronic obstructive pulmonary disease requiring medication nebulizers and general supportive care. 9. Diabetes mellitus type 2 with close followup and adjustment of treatment as required. 10. History of coronary artery disease. 11. Benign prostatic hypertrophy. PLAN: The patient is to be admitted for fluid restrictions, loop diuresis to assist with the significant hyponatremic state. Will try 300 mL of 3% saline very slowly infused tonight and reevaluate in the morning. Continue on sliding scale insulin. Await urinalysis. Schedule CT scan of the hip in the morning to evaluate the swelling. Await inflammatory markers to rule out any evidence of a possible early abscess. Dr. Elizabeth to see the patient in the morning. Try to get results of recent discharge summation from [facility] in the morning. The patient will eventually benefit from ongoing outpatient management with Dr. Hanna' clinic when clinically stable. Continue evaluation. #[id number] [facility]
[2018-01-10] MEDS ORDERED: SODIUM CHLORIDE 0.9% (FLUSH) 10 ML SYG IV PRN (18:58)
[2018-01-10] MEDS ORDERED: ALBUTEROL SULFATE 2.5 MG/3 ML VIAL NEB PRN (18:58)
[2018-01-10] MEDS ORDERED: DEXTROSE 50% 25 GM/50 ML SYG IV PRN (18:58)
[2018-01-10] MEDS ORDERED: MAGNESIUM HYDROXIDE 30 ML UD PO PRN (18:58)
[2018-01-10] MEDS ORDERED: GLUCAGON INJ 1 MG VIAL SUBCU PRN (18:58)
[2018-01-10] MEDS ORDERED: BISACODYL SUPPOSITORY 10 MG PR PRN (19:07)
[2018-01-10] MEDS ORDERED: SOD CHL 3% *HYPERTONIC* 500ML 300 ML IVS ONE (19:08)
[2018-01-10] MEDS: LEVALBUTEROL NEBS 1.25 MG/3 ML VIAL INH SCH (19:45)
[2018-01-10] MEDS: HYDROcodone 5MG/APAP 325MG 1 EA TAB PO PRN (20:47)
[2018-01-10] MEDS: GABAPENTIN 300 MG CAP PO SCH (20:47)
[2018-01-10] MEDS: INSULIN LISPRO 100 UNITS/ML PEN SUBCU SCH (21:28)
[2018-01-10] MEDS: IV SET AND CAP CHANGE INJ INJ SCH (21:31)
[2018-01-11] MEDS: SODIUM CHLORIDE 0.9% 1000ML 1,000 ML IVS PRN ×2 (01:33→22:28)
[2018-01-11] MEDS: OMEPRAZOLE CAP 20 MG CAP PO SCH (06:05)
[2018-01-11] MEDS: INSULIN LISPRO 100 UNITS/ML PEN SUBCU SCH ×4 (07:20→21:30)
[2018-01-11] MEDS: metFORMIN HCL 500 MG TAB PO SCH ×2 (08:09→17:15)
[2018-01-11] MEDS: NON-FORMULARY MEDICATION 1 EA MIS (Fluticasone Furoate-Vilanterol [Breo Ellipta 100-25 Mcg INH SCH (08:30)
[2018-01-11] MEDS: LEVALBUTEROL NEBS 1.25 MG/3 ML VIAL INH SCH ×3 (08:31→20:02)
[2018-01-11] MEDS: MULTIPLE VITAMINS W/ MINERALS 1 EA TAB PO SCH (09:04)
[2018-01-11] MEDS: HYDROcodone 5MG/APAP 325MG 1 EA TAB PO PRN (10:32)
[2018-01-11] MEDS ORDERED: WARFARIN SODIUM 2 MG TAB PO ONE (10:56)
[2018-01-11] MEDS ORDERED: MAGNESIUM HYDROXIDE 30 ML UD PO ONE (11:25)
--- NOTE | 2018-01-11 11:37 | CT ---
EXAM DESCRIPTION: Lower Extremity: Computed Tomography. CLINICAL HISTORY: right hip hematoma 2 weeks after Isaiah-arthroplasty. COMPARISON: None Available. TECHNIQUE: Spiral, axial 5.0 mm scans through the right pelvis, right hip, and proximal right femur without contrast. 2.5 mm axial reconstructions and 2.0 mm coronal and sagittal reconstructions. Total Exam DLP: 206.95 mGy-cm. This exam was performed according to our departmental CT dose-optimization program which includes automated exposure control, adjustment of the mA and/or kV according to patient size and/or use of iterative reconstruction technique; to reduce radiation dose to as low as reasonably achievable (ALARA). FINDINGS: Mass in the lateral adipose subcutaneous tissues abutting the lower right pelvis, right hip, and proximal right femur. Underlying lateral skin lewis, upper margin at the level of the junction of the inferior right iliac bone and right acetabulum. Lower margin just below the inferior extent of the skin lewis, just above the level of the inferior femoral prosthetic stem tip. Greatest transverse diameter 4.8 x 3.4 cm, and approximately 15 cm long axis, parallel to the femur. Margins are somewhat irregular. Small gas bubble abutting the anterior margin inferiorly. Abutting the muscle fascia at the level of the prosthetic acetabulum and femoral head. Bone density around the femoral and acetabular components is unremarkable. Minimal air bubbles lateral to the femoral neck. No definite mass, though evaluation is limited due to scatter artifact. IMPRESSION: 1. Fusiform soft tissue mass with long axis parallel to the femur in the right lateral subcutaneous adipose tissue with upper margin at the level of the lower right pelvis and lower margin just above the level of the inferior tip of the femoral stem. Roughly correlates with overlying skin lewis. Small air bubble inferiorly in the anterior margin. Differential includes hematoma versus abscess. Exterior to the outer muscle fascia. Consider follow-up ultrasound, or post IV contrast CT scan. The images were reviewed in person with Dr. Vega. Electronically signed by: Robert Worthington MD 01/11/2018 11:37 AM [employer]
--- NOTE | 2018-01-11 11:43 | RAD ---
EXAM DESCRIPTION: Chest,1 View CLINICAL HISTORY: Hyponatremia COMPARISON: Portable chest 12/24/2017. TECHNIQUE: AP portable 951 hours. Upright.. FINDINGS: The lungs are minimally over expanded bilaterally with chronic linear densities in the left base. No new consolidation No pleural effusion, no pneumothorax. Senescent densities bilaterally. Heart size within normal range; pulmonary vascularity not increased. Mediastinum no widening. Aorta not tortuous. No gross bony thoracic abnormalities. Sternotomy wires. Electronic wires. IMPRESSION: No radiographic evidence of acute cardiopulmonary disease in this senescent chest. Stable scarring or atelectasis in the left base. Electronically signed by: Robert Worthington MD 01/11/2018 11:42 AM ANIMAL HUSBANDRY MANAGER
[2018-01-11] MEDS ORDERED: SODIUM PHOS/BIPHOS ENEMA ADULT 133 ML BTTL PR ONE (11:45)
--- NOTE | 2018-01-11 13:17 | PN ---
DATE: 01/11/18 SUBJECTIVE: The patient did eat a little bit of breakfast this morning. He is otherwise resting and having somewhat of a difficult time being able to sit up and to interact. He is disoriented as to place and time, but does know the name of his daughter. He is complaining of no specific pain. His hip wound appears to be stable with ecchymosis and no significant drainage present. OBJECTIVE: VITAL SIGNS: Afebrile. Pulse 78. Blood pressure 105/54. Pulse oximetry 96% on room air. GENERAL: The patient is able to be stimulated and opens his eyes and communicates though is somewhat confused. He is in no acute distress. Coloration is quite pale. Repeat followup necessary. LUNGS: Diminished breath sounds. HEART: Regular ABDOMEN: Generally soft. EXTREMITIES: The swelling on the lateral right hip persists and lewis are in place. Ecchymosis surrounding the incision is noted where the patient did have a right hemiarthroplasty of the hip two weeks ago. He has been [facility] for the last ten days for rehabilitation, but has been so weak he has been unable to fully participate. Physical therapy evaluation for rehab potential again today. LABORATORY: White count 7,800, hemoglobin has dropped from 9.7 to 9. Repeat followup tomorrow. INR after vitamin K has decreased from 3.5 down to 2.4 today. Chemistry shows sodium has gone up from 124 to 128 while potassium has stayed the same. BUN 23, glucose 125 fasting. C-reactive protein 8. Liver enzymes normal. TSH normal at 3.24. Awaiting urinalysis. The patient is still having some difficulty passing urine. Whether this is related to some fecal impaction and rectosigmoid impaction contributing to bladder outlet obstruction to be approached symptomatically. Ultrasound of the bladder does show urine in the bladder, not of a large quantity, but the patient refuses a Maxwell catheter at this time, so we will work on the fecal impaction to see if it will assist with bladder outlet obstructive symptoms. Lower extremity CT scan is performed and shows a fusiform soft tissue mass with long axis parallel to the incision. This correlates with the overlying skin lewis suggesting a hematoma versus an abscess that is exterior to the outer muscle fascia with further followup suggested. Chest x-ray is performed and shows no evidence of significant cardiopulmonary processes. ASSESSMENT: 1. Significant hyponatremia receiving supportive and therapeutic intervention, showing slight improvement with further treatment to continue. 2. Prolonged INR, showing some improvement after vitamin K administration with the patient to continue on a lower dose of Coumadin to maintain a therapeutic, yet not an elevated INR situation because of the hematoma in the right hip region. 3. Significant anemia, worsening, with repeat followup tomorrow to see if he will require a couple of units of red blood cells to assist with his rehab potential. 4. History of constipation, may be contributing to some bladder outlet obstruction. 5. Mild fever initially, showing some improvement. 6. History of aortic stenosis with aortic valve replacement, currently on Coumadin therapy chronically. 7. Hyperkalemia. 8. Chronic obstructive pulmonary disease with supportive care in progress. 9. Diabetes mellitus, type 2, with continued sliding scale and adjustments as required. 10. History of coronary artery disease. 11. History of benign prostatic hypertrophy possibly contributing to some of the bladder outlet obstruction and some difficulty passing his urine. PLAN: We will consider removing half of the lewis after hearing back from Dr. Seay, phone number [phone]. We have not heart back from him after I talked with his nurse in the clinic earlier today. Physical therapy to evaluate for rehab potential. He will continue with continue the rehab when stable. Consider removal of half of the lewis in the morning after we hear back from Dr. Seay, now two weeks after the surgery. I discussed with Dr. Elizabeth who at this time wishes no specific intervention, but continued observation. We will reevaluate hemoglobin in the morning to see if he will require 2 units of packed red blood cells to assist him in his rehab ability to improve. Recheck sodium in the morning. Continue with fluid restrictions and reevaluate. Anticipate return to [facility] tomorrow if stable with continued close management and followup. [facility][id number] [facility]
[2018-01-11] MEDS ORDERED: FUROSEMIDE INJ 20 MG/2 ML VIAL IV ONE (16:12)
--- NOTE | 2018-01-11 16:27 | US ---
Ultrasound of bladder HISTORY: Urinary retention COMPARISON: None TECHNIQUE: Grayscale sonographic evaluation of bladder. FINDINGS: No intraluminal nor mucosal abnormality identified in bladder. Prevoid volume of 369 mL. Patient unable to void during this examination. IMPRESSION: Unremarkable appearance of bladder. Post void residual could not be estimated. Electronically signed by: Jhony London MD 01/11/2018 4:26 PM [employer]ESS CONTROL SUPERVISOR
[2018-01-11] MEDS: GABAPENTIN 300 MG CAP PO SCH (20:50)
[2018-01-12] MEDS: OMEPRAZOLE CAP 20 MG CAP PO SCH (06:30)
[2018-01-12] MEDS ORDERED: predniSONE 10 MG TAB ONE (07:15)
[2018-01-12] MEDS ORDERED: AMIODARONE HCL 200 MG TAB ONE (07:15)
[2018-01-12] MEDS ORDERED: ASPIRIN EC 81 MG TAB PO ONE (07:16)
[2018-01-12] MEDS ORDERED: SPIRONOLACTONE 25 MG TAB ONE (07:16)
[2018-01-12] MEDS ORDERED: CARVEDILOL 3.125 MG TAB ONE (07:16)
[2018-01-12] MEDS ORDERED: FUROSEMIDE INJ 20 MG/2 ML VIAL ONE (07:16)
[2018-01-12] MEDS ORDERED: NYSTATIN SUSPENSION 5 ML UD ONE (07:16)
[2018-01-12] MEDS ORDERED: RIVAROXABAN 15 MG TAB ONE (07:16)
[2018-01-12] MEDS ORDERED: ESCITALOPRAM 10 MG TAB ONE (07:16)
[2018-01-12] MEDS: INSULIN LISPRO 100 UNITS/ML PEN SUBCU SCH ×4 (07:21→21:24)
[2018-01-12] MEDS: metFORMIN HCL 500 MG TAB PO SCH ×2 (08:02→17:29)
[2018-01-12] MEDS: MULTIPLE VITAMINS W/ MINERALS 1 EA TAB PO SCH (09:13)
[2018-01-12] MEDS: LEVALBUTEROL NEBS 1.25 MG/3 ML VIAL INH SCH ×3 (09:45→20:36)
[2018-01-12] MEDS: NON-FORMULARY MEDICATION 1 EA MIS (Fluticasone Furoate-Vilanterol [Breo Ellipta 100-25 Mcg INH SCH (11:10)
[2018-01-12] MEDS: WARFARIN SODIUM 2 MG TAB PO SCH (12:38)
--- NOTE | 2018-01-12 13:37 | PN ---
SUPERVISING PHYSICIAN: Nathan Hanna MD DATE: 01/12/18 SUBJECTIVE: The patient is lying in bed quietly. He has no complaints of shortness of breath, chest pain, nausea, vomiting, diarrhea. Daughter is at the bedside. We discussed his discharge plan and hopefully will be discharged tomorrow. OBJECTIVE: VITAL SIGNS: Afebrile. Heart rate 94. Blood pressure 115/67. Heart rate 94. Respiratory rate 18. O2 saturation 99% on room air. LUNGS: Essentially clear to auscultation bilaterally. CARDIAC: Regular rate and rhythm. GASTROINTESTINAL: Abdomen is soft, nondistended, nontender. EXTREMITIES: No cyanosis, clubbing or edema. Bilateral pedal pulses are palpable at +1 to +2. Dressing to the right hip is dry and intact. NEUROLOGIC: Awake, alert and oriented times three. LABORATORY: WBCs 6.7, hemoglobin 8.5, hematocrit 26.5, platelet count 399. Sodium improved to 131, potassium 5.2, BUN 23, creatinine 0.93. Bladder ultrasound from yesterday shows unremarkable appearance of bladder. Post void residual could not be estimated. All other labs and films have been reviewed via the EMR. ASSESSMENT: 1. Hyponatremia, improved with fluid restrictions and normal saline. 2. Elevated INR which has become subtherapeutic. His Coumadin will be increased tomorrow and INR will be rechecked. 3. Significant anemia, slightly worsened. At this point, his hemoglobin is 8.5 and we will recheck it tomorrow. 4. Right hip fracture status post hip surgery from approximately one week ago, presently has a hematoma to that area. 5. History of constipation. 6. History of aortic stenosis with aortic valve replacement, currently on Coumadin therapy chronically. 7. Hyperkalemia. 8. Chronic obstructive pulmonary disease. 9. Diabetes mellitus, type 2. 10. Coronary artery disease. 11. History of benign prostatic hypertrophy. PLAN: We will continue present supportive care. I have called Dr. Seay, his orthopedic surgeon, to followup and make sure what his plan for the hematoma was , if we should let it absorb or if he would like to so some other intervention. Yesterday, he recommended we remove his lewis and due to the hematoma, we removed every other one and will remove the remaining lewis in the next 2 to 3 days. Physical therapy will continue with Mr. Cook. I have also encouraged good pulmonary hygiene including incentive spirometry. I ordered AM labs including a PT/INR for tomorrow. Hopefully he can be discharged to [facility] tomorrow for further strengthening and conditioning with physical therapy. Dr. Hanna is the collaborating physician and available for consultation. #[id number] [facility]
[2018-01-12] MEDS: SODIUM CHLORIDE 0.9% 1000ML 1,000 ML IVS PRN (19:56)
[2018-01-12] MEDS: GABAPENTIN 300 MG CAP PO SCH (21:24)
[2018-01-13] MEDS: OMEPRAZOLE CAP 20 MG CAP PO SCH (06:22)
[2018-01-13] MEDS: INSULIN LISPRO 100 UNITS/ML PEN SUBCU SCH ×4 (07:28→21:28)
[2018-01-13] MEDS: metFORMIN HCL 500 MG TAB PO SCH ×2 (07:33→17:20)
[2018-01-13] MEDS: LEVALBUTEROL NEBS 1.25 MG/3 ML VIAL INH SCH ×3 (08:23→20:27)
[2018-01-13] MEDS: MULTIPLE VITAMINS W/ MINERALS 1 EA TAB PO SCH (09:03)
[2018-01-13] MEDS: NON-FORMULARY MEDICATION 1 EA MIS (Fluticasone Furoate-Vilanterol [Breo Ellipta 100-25 Mcg INH SCH (09:20)
[2018-01-13] MEDS ORDERED: WARFARIN SODIUM 3 MG TAB PO ONE (12:32)
--- NOTE | 2018-01-13 13:22 | PN ---
SUPERVISING PHYSICIAN: Nathan Hanna MD DATE: 01/13/18 SUBJECTIVE: The patient is sitting up in his chair in his room. He feels much better and somewhat stronger. Family is at the bedside. He denies any chest pain, shortness of breath, nausea, vomiting, diarrhea. He continues to have weakness, but is much improved since yesterday. OBJECTIVE: VITAL SIGNS: Afebrile. Heart rate 91. Blood pressure 144/78. Respiratory rate 16. O2 saturation 98% on room air. LUNGS: Essentially clear to auscultation bilaterally. Slightly diminished at the bases. CARDIAC: Regular rate and rhythm. GASTROINTESTINAL: Abdomen is soft, nondistended, nontender. EXTREMITIES: Dressing to the right lateral hip area is dry and intact. NEUROLOGIC: Awake, alert and oriented times three. LABORATORY: WBCs 5.4. Hemoglobin improved from 8.5 yesterday to 8.8 today. Hematocrit 26.6. Platelet count 408. INR 1.47. Blood sugars have run between 90 and 199. Sodium 131, potassium 5.1, chloride 103, carbon dioxide 23, BUN 19 , creatinine 0.64. All other labs and films have been reviewed via the EMR. ASSESSMENT: 1. Hyponatremia, remains the same, although slightly improved from admission with fluid restrictions and normal saline. 2. Elevated INR on admission, continues to be subtherapeutic. He received 7 mg of Coumadin today and his INR will be rechecked tomorrow. We will continue at 5 mg daily. 3. Significant anemia, improved slightly worsened. Hemoglobin is 8.8. 4. Right hip fracture status post hip surgery from approximately one week ago, presently has a hematoma to that area. 5. History of constipation. 6. History of aortic stenosis with aortic valve replacement, currently on Coumadin therapy. 7. Hyperkalemia. 8. Chronic obstructive pulmonary disease. 9. Diabetes mellitus, type 2. 10. Coronary artery disease. 11. History of benign prostatic hypertrophy. PLAN: We will continue present supportive care. Dr. Seay, the patient's orthopedic surgeon, called back yesterday and agreed that we should let the hematoma absorb. His hemoglobin and hematocrit are slightly improved today and the patient complains of less weakness. We will hold off on giving him any blood at this time. Initially, the plans for the patient had been to do some rehab for his hip, but due to the multiple medical problems as well as complications, the family has elected to have the patient discharged with [facility]. He will return to [facility] tomorrow. We have had lengthy discussions with family and they agree that this is best for their father. Again, yesterday every other staple was removed from his incision and we will most likely remove the remainder of his lewis next Thursday. He can followup with Dr. Hanna at that time. I expect that he will be discharged to [facility] tomorrow with close followup with Dr. Hanna. Dr. Hanna is the collaborating physician and available for consultation. [facility][id number] [facility]
[2018-01-13] MEDS: WARFARIN SODIUM 2 MG TAB PO SCH ×2 (13:31→14:46)
[2018-01-13] MEDS ORDERED: WARFARIN SODIUM 2 MG TAB ONE (14:44)
[2018-01-13] MEDS: SODIUM CHLORIDE 0.9% 1000ML 1,000 ML IVS PRN (18:07)
[2018-01-13] MEDS: IV SET AND CAP CHANGE INJ INJ SCH (18:25)
[2018-01-13] MEDS: GABAPENTIN 300 MG CAP PO SCH (21:28)
[2018-01-14 06:15] VITALS: TEMP 98.2
[2018-01-14] MEDS: OMEPRAZOLE CAP 20 MG CAP PO SCH (06:37)
[2018-01-14] MEDS: INSULIN LISPRO 100 UNITS/ML PEN SUBCU SCH ×3 (07:06→17:29)
[2018-01-14] MEDS: LEVALBUTEROL NEBS 1.25 MG/3 ML VIAL INH SCH ×2 (07:08→14:35)
[2018-01-14] MEDS: MULTIPLE VITAMINS W/ MINERALS 1 EA TAB PO SCH (08:01)
[2018-01-14] MEDS: metFORMIN HCL 500 MG TAB PO SCH ×2 (08:01→17:25)
[2018-01-14 11:15] VITALS: BP 112/64
[2018-01-14] MEDS ORDERED: WARFARIN SODIUM 5 MG TAB PO SCH (12:00)
[2018-01-14 16:43] VITALS: O2SAT 99
--- NOTE | 2018-01-23 10:37 | DS ---
SUPERVISING PHYSICIAN: Nathan Hanna MD DISCHARGE DIAGNOSES: 1. Hyponatremia showing to be stable, slightly improved from admission after being treated with fluid restrictions and normal saline. 2. Elevated INR on admission being supratherapeutic after being given vitamin K requiring further ongoing management with outpatient studies to further target INR. 3. Significant anemia showing to be stable with hemoglobin of 8.8. 4. Right hip fracture status post hip surgery showing possibly the weak previously with hematoma to the right hip. 5. History of constipation. 6. History of aortic stenosis with aortic valve replacement, currently on Coumadin therapy, 7. Hyperkalemia. 8. Chronic obstructive pulmonary disease. 9. Diabetes mellitus, type 2. 10. History of coronary artery disease. 11. History of benign prostatic hypertrophy. REASON FOR HOSPITALIZATION: . Mr. Cook is an 82 year-old male patient who injured his right knee and hip after sustaining a same level fall. He subsequently went home where he lives alone but came to the office to see Dr. Hanna, his primary care physician, on December 24 for examination. He was unable to ambulate. In the office he was found to have a subcapital fracture and was referred to the Emergency Room for eventual hospitalization. He was admitted to the hospital on 12/24/17 by Mary Aguirre. The next day he was examined further by Dr. Elizabeth, orthopedic surgeon, and by Anesthesia, it was determined that because of the patient's significant co-morbidities, the patient will be transferred to the hospital in the [facility] for assistance for a significant bony fracture. He apparently eventually went with family to [facility], and spent the evening of December 25 in the Emergency Room. He subsequently stabilized on the and had a right hemiarthroplasty performed on Thursday, the 27 of December. He had some transient low blood pressure in the hospital. He continued on Coumadin and eventually had surgical procedure successfully performed on 12/27/17, and was discharged from [facility] on 12/31/17. His lewis came out 10 days previously. He was transferred 10 days ago to [facility] for rehabilitation and for recuperation. He was unable to participate with physical therapy since he was severely weak and debilitated. Increasing pain in the right hip as well as decreased eating and appetite and drinking lead him having to be sent to the Emergency Room for evaluation. In the Emergency Room he was found to have a fairly large hematoma and ecchymotic area on the right hip. In the Emergency Room, he was also found to have a significantly prolonged INR at which time he was given vitamin K parenterally and because of the significantly low sodium of 124 and with his hemoglobin being very low compared to what it was before surgery, with a low- grade temperature and potassium of 5.1, he required further stabilization given the diabetes, etc. He was admitted to the hospital for specific management and followup. LABORATORY STUDIES: CBC on admission was 10,100, prior to discharge one day was 5,400, hemoglobin stabilized from lowest of 8.8 and 26.6, at discharge 9.6 and 29.7. Platelet count 408,000, differential showed a left shift which resolved prior to discharge. Coagulation studies showed initial INR on admission was 3.47 with PTT of 38.7. He was given vitamin K and prior to discharge and after starting his Coumadin back he was only up to 1.5. Chemistries initially on admission, potassium was 5.1 with sodium of 124, chloride 94, carbon dioxide 17, BUN 23, creatinine 0.96. Glucose 120. Total bilirubin 1.1. Calcium 8.8. After further treatment and prior to discharge, his sodium was 131, potassium 5.1. BUN down to 19, creatinine 0.64. Blood sugar had stabilized between 90 and 117. Magnesium was up to 2.3. Urinalysis on admission showed just a trace of intact blood, his last was within normal limits. He had two stools for occult blood, one was positive, one was negative. MICROBIOLOGY: No specimens were submitted. No blood bank was completed. RADIOLOGY: Initially in the Emergency Room he had a pelvis x-ray and per radiology interpretation there were no acute findings on single projection of the pelvis. He also had a chest x-ray and a lower extremity CT. Chest x-ray, single-view, showed no radiographic or acute cardiopulmonary disease, stable scarring atelectasis in the left base. His lower extremity CT of the right for a hematoma showed acutely formed soft tissue mass along the axis parallel to the femur in the right lateral subcutaneous adipose tissue with upper margin at the level of the lower right pelvis and lower margin just above the level of the of the inferior tip of the femoral stem. Roughly correlates with overlying skin lewis, Small air bubble inferiorly in the anterior margin. Differential would include hematoma versus abscess. Exterior to the outer muscle fascia. He also had a bladder ultrasound for urinary retention which showed unremarkable appearance of the bladder, post void residual could not be estimated. HOSPITAL COURSE: As noted in the history of present illness, was admitted for a large hematoma and electrolyte imbalance and a severe deconditioning and low hemoglobin. He was evaluated by physical therapy and was found to be stable in regards to the hematoma with recommended that he have twice a day rehabilitation and continue at [facility]. On the date of admission, he was given 5 mg of vitamin K by injection with concerns for the hematoma that was there, given slightly elevated INR and continuation of bleeding and hematocrit and hemoglobin on admission. The patient responded well to treatment and was showing to be clinically stable. Therefore, he was to be discharged to have close clinical followup and continue rehabilitation at [facility]. PLAN: Mr. Cook was discharged on 01/14/18 with instructions to followup with Dr. Hanna in one to two weeks. He was returned back to [facility]. He was to have [facility] care but continue physical therapy for evaluation and treatment. He is to resume home medications tomorrow and to call [facility] or Dr. Hanna for any questions and return to the hospital should he have any concerning symptoms. At discharge, diet was diabetic diet. Activities was ambulate only with a walker and as per physical therapy. He was to have wound care, could have a shower but no bath and to resume home medications tomorrow. Condition on discharge was stable and improved. #[id number] [facility]
== END 2018-01-14 18:04 | disposition hospice, home (50) | DRG 948 ==
LOC: ER 14:01 → MS 17:00 → OBSVTOIN 17:00
PROVIDERS: ADMIT Emergency Medicine; ATTEND Nurse Practitioner Family
DX: R79.1 Abnormal coagulation profile (principal); E87.1 Hypo-osmolality and hyponatremia; T45.515A Adverse effect of anticoagulants, initial encounter; D64.9 Anemia, unspecified; K59.00 Constipation, unspecified; E87.5 Hyperkalemia; J44.9 Chronic obstructive pulmonary disease, unspecified; H91.90 Unspecified hearing loss, unspecified ear; R50.9 Fever, unspecified; N40.1 Benign prostatic hyperplasia with lower urinary tract symptoms; E11.9 Type 2 diabetes mellitus without complications; R39.198 Other difficulties with micturition; F03.90 Unspecified dementia, unspecified severity, without behavioral disturbance, psychotic disturbance, mood disturbance, and anxiety; I25.10 Atherosclerotic heart disease of native coronary artery without angina pectoris; M81.0 Age-related osteoporosis without current pathological fracture; J30.9 Allergic rhinitis, unspecified; Z96.641 Presence of right artificial hip joint; S72.011D Unspecified intracapsular fracture of right femur, subsequent encounter for closed fracture with routine healing; Z88.2 Allergy status to sulfonamides; Z95.2 Presence of prosthetic heart valve; Y92.9 Unspecified place or not applicable; Z79.01 Long term (current) use of anticoagulants; Z79.82 Long term (current) use of aspirin; Z79.84 Long term (current) use of oral hypoglycemic drugs; Z79.899 Other long term (current) drug therapy

== ENCOUNTER → 2018-04-21 | Outpatient (CLI) | payer MEDICARE, OTHER | LOC: GMAJ 16:53 | PROVIDERS: ATTEND Family Medicine | DX: N39.41 Urge incontinence (principal) ==

== ENCOUNTER 2018-05-20 14:36 | Emergency (ER) | payer OTHER ==
[2018-05-20 14:59] VITALS: TEMP 98.6
--- NOTE | 2018-05-20 15:17 | ED.PDOC ---
History of Present Illness - General Chief Complaint: General Time Seen by Provider: 05/20/18 15:09 Source: family Exam Limitations: clinical condition - History of Present Illness Initial Comments: Patient comes in today via EMS with family for altered LOC. Family states that a month ago he was brought home from the retirement after completing rehabilitation for a hip replacement. At that time he was doing well although he did require continuous care from the the family. He was able to ambulate with a walker and still participate in most of his activities throughout the day. They did believe that he has some underlying memory loss with some mild dementia. However, in the last week he has been significantly worse. Last Thursday he had a fall outside on the sidewalk and suffered a contusion to the posterior of his head. At that time hospice care, which is consulted for his COPD, stated that if he did have a concussion it would be better for him to just stay at home and wait until he improved on his own. However, the family states that he has not improved and instead has significantly worsened. Since that first fall he has fallen 5 more times and is becoming more agitated and confused. They've noticed that his words appear slurred and he is unable to even aske for help prior to getting up out of bed. He seems more agitated and more unsteady although he does not complain of any discomfort or pain. He has had 2 more falls this morning and family states he cannot walk with his walker any longer. He has not had any fever or chills. He had a bowel movement today that was loose but they do not report diarrhea. Patient's had no cough, shortness of breath, or chest pain. The patient states feels okay but he is unable to answer most questions and he continually believes that he has met the staff before even though he has not. Timing/Duration: 1 week Severity: severe Improving Factors: nothing Worsening Factors: nothing Associated Symptoms: denies symptoms Allergies/Adverse Reactions: Allergies Sulfa Antibiotics Allergy (Verified 01/10/18 18:05) Unknown Home Medications: Ambulatory Orders Gabapentin 300 mg PO BEDTIME 10/09/17 Metformin HCl 500 mg PO BIDFD 10/09/17 Warfarin Sodium [Coumadin] 5 mg PO 1700 10/09/17 Citalopram Hydrobromide [Celexa] 10 mg PO DAILY 12/24/17 raNITIdine HCL [Zantac] 150 mg PO BID 12/24/17 Ascorbic Acid [Vitamin C] 250 mg PO BID 01/10/18 Calcium Carbonate-Cholecalcife [Calcium 600+D 600-400 mg-Unit] 1 tab PO DAILY Ergocalciferol [Drisdol] 50,000 unit PO WKLY 01/10/18 Ferrous Sulfate [Slow Release Iron] 1 tablet PO DAILY 01/10/18 Fluticasone/Salmeterol 100/50 [Advair 100/50 Diskus] 1 puff INH BID 01/10/18 Guaifenesin [Mucinex] 600 mg PO BID 01/10/18 HYDROcodone 5MG/APAP 325MG [Partlow 5/325] 1 ea PO Q6H PRN 01/10/18 Insulin Lispro (Human) [Humalog] 0 unit SUBCU ACHS PRN 01/10/18 Ipratropium/Albuterol [Duoneb] 3 ml INH QID PRN 01/10/18 Midodrine HCl 5 mg PO TID 01/10/18 Multiple Vitamins W/ Minerals [Multivitamin Adults] 1 tab PO DAILY 01/10/18 Senna/Docusate Tab [Senokot-S] 1 ea PO DAILY 01/10/18 Review of Systems - Review of Systems Constitutional: States: weakness. Denies: chills, diaphoresis, fever EENTM: States: no symptoms reported. Denies: blurred vision, ear pain, throat pain Respiratory: States: no symptoms reported. Denies: cough, short of breath, wheezing Cardiology: States: no symptoms reported. Denies: chest pain, edema, palpitations Gastrointestinal/Abdominal: States: no symptoms reported. Denies: abdominal pain, diarrhea, nausea, vomiting Genitourinary: States: no symptoms reported. Denies: discharge, dysuria Musculoskeletal: States: no symptoms reported Skin: States: no symptoms reported Neurological: States: see HPI Past Medical History (General) - Patient Medical History Hx Seizures: No Hx Stroke: No Hx Dementia: Yes Hx Asthma: No Hx of COPD: Yes Hx Cardiac Disorders: Yes Hx Congestive Heart Failure: No Hx Pacemaker: No Hx Hypertension: No Hx Thyroid Disease: No Hx Diabetes: Yes Hx Gastroesophageal Reflux: No Hx Renal Disease: No Hx Cancer: No Hx of HIV: No Hx Hepatitis C: No Hx MRSA: No Hx Other PMH: Yes - mechanical valve - Vaccination History Hx Tetanus, Diphtheria Vaccination: No Hx Influenza Vaccination: Yes Hx Pneumococcal Vaccination: No Immunizations Up to Date: No - Social History Hx Tobacco Use: No Hx Chewing Tobacco Use: No Hx Alcohol Use: No Hx Substance Use: No Hx Substance Use Treatment: No Hx Depression: No Feels Threatened In Home Enviroment: No Feels Threatened In a Relationship: No Hx Physical Abuse: No Hx Emotional Abuse: No Hx Suspected Abuse: No - Female History Patient is a Female of Child Bearing Age (10 -59 yrs old): No Patient : No Family Medical History - Family History Father Family History: Unknown Living Status: Hx Cardiac Disease: Yes - mom/dad Hx Family Diabetes: Yes - brother Physical Exam - Physical Exam General Appearance: Frail, No apparent distress Eye Exam: bilateral other - 1 mm pupils with minimal reaction Ears, Nose, Throat: other - hearing impairment, bruising to the posterior L scalp 5 cm area, TM clear with no bleeding, no facial trauma, tacky mucous membranes, no nasal congestion Neck: non-tender, full range of motion, supple, normal inspection Respiratory: chest non-tender, lungs clear, normal breath sounds, no respiratory distress Cardiovascular/Chest: normal peripheral pulses, regular rate, rhythm, no edema, no gallop, no JVD, no murmur Peripheral Pulses: radial,right: 2+, radial,left: 2+ Gastrointestinal/Abdominal: normal bowel sounds, non tender, soft, no organomegaly, no pulsatile mass Back Exam: normal inspection, no CVA tenderness, no vertebral tenderness Extremity: normal range of motion, non-tender, normal inspection Neurologic: no motor/sensory deficits, alert, other - confused with some slurring of words Progress - Progress Progress: 05/20/18 17:35 Laboratory Results WBC 8.4 K/mm3 (4.8-10.8) 05/20/18 15:09 RBC 4.91 M/mm3 (4.70-6.10) 05/20/18 15:09 Hgb 11.7 gm/dL (14.0-18.0) L 05/20/18 15:09 Hct 36.0 % (42.0-52.0) L 05/20/18 15:09 MCV 73.3 fl (80.0-94.0) L 05/20/18 15:09 MCH 23.8 pg (27.0-31.0) L 05/20/18 15:09 MCHC 32.6 g/dL (33.0-37.0) L 05/20/18 15:09 RDW 19.3 % (11.5-14.5) H 05/20/18 15:09 Plt Count 187 K/mm3 (130-400) 05/20/18 15:09 MPV 8.6 fl (7.40-10.4) 05/20/18 15:09 Absolute Neuts (auto) 7.80 K/uL (1.8-6.8) H 05/20/18 15:09 Absolute Lymphs (auto) 0.40 K/uL (1.0-3.4) L 05/20/18 15:09 Absolute Monos (auto) 0.20 K/uL (0.2-0.8) 05/20/18 15:09 Absolute Eos (auto) 0.00 K/uL (0.0-0.4) 05/20/18 15:09 Absolute Basos (auto) 0.00 K/uL (0.0-0.1) 05/20/18 15:09 Neutrophils % 93.0 % (42.0-78.0) H 05/20/18 15:09 Lymphocytes % 4.3 % (20.0-50.0) L 05/20/18 15:09 Monocytes % 2.5 % (2.0-9.0) 05/20/18 15:09 Eosinophils % 0.1 % (1.0-5.0) L 05/20/18 15:09 Basophils % 0.1 % (0.0-2.0) 05/20/18 15:09 RBC Morphology 1+aniso 1+hypochromia 1+microcytosis 1+toxic granulation Plts allyson adequate 05/20/18 15:09 RBC Morphology 1+aniso 1+hypochromia 1+microcytosis 1+toxic granulation Plts allyson adequate 05/20/18 15:09 RBC Morphology 1+aniso 1+hypochromia 1+microcytosis 1+toxic granulation Plts allyson adequate 05/20/18 15:09 RBC Morphology 1+aniso 1+hypochromia 1+microcytosis 1+toxic granulation Plts allyson adequate 05/20/18 15:09 RBC Morphology 1+aniso 1+hypochromia 1+microcytosis 1+toxic granulation Plts allyson adequate 05/20/18 15:09 PT 15.9 SECONDS (9.4-12.5) H 05/20/18 15:09 INR 1.380 05/20/18 15:09 PTT (SP) 32.9 SECONDS (25.1-36.5) 05/20/18 15:09 Sodium 135 mmol/L (135-145) 05/20/18 15:09 Potassium 5.7 mmol/L (3.6-5.0) H 05/20/18 15:09 Chloride 102 mmol/L (101-111) 05/20/18 15:09 Carbon Dioxide 23 mmol/L (21-31) 05/20/18 15:09 Anion Gap 15.7 (12-18) 05/20/18 15:09 BUN 35 mg/dL (7-18) H 05/20/18 15:09 Creatinine 1.09 mg/dL (0.6-1.3) 05/20/18 15:09 BUN/Creatinine Ratio 32.1 (10-20) H 05/20/18 15:09 Random Glucose 333 mg/dL (70-105) H 05/20/18 15:09 Serum Osmolality 291.1 mOsm/L (275-295) 05/20/18 15:09 Calcium 9.5 mg/dL (8.4-10.2) 05/20/18 15:09 Total Bilirubin 0.4 mg/dL (0.2-1.0) 05/20/18 15:09 AST 21 IU/L (10-42) 05/20/18 15:09 ALT 18 IU/L (10-60) 05/20/18 15:09 Alkaline Phosphatase 47 IU/L (42-121) 05/20/18 15:09 Creatine Kinase 30 IU/L (38-174) L 05/20/18 15:09 CK-MB (CK-2) 2.0 ng/mL (0.0-4.4) 05/20/18 15:09 CK-MB (CK-2) % Not Reportable 05/20/18 15:09 Troponin I 0.02 ng/mL (0.01-0.05) 05/20/18 15:09 Serum Total Protein 6.7 gm/dL (6.4-8.2) 05/20/18 15:09 Albumin 3.9 g/dl (3.2-5.5) 05/20/18 15:09 Globulin 2.8 gm/dL (2.3-3.5) 05/20/18 15:09 Albumin/Globulin Ratio 1.4 (1.1-1.9) 05/20/18 15:09 Urine Color Yellow (Yellow) 05/20/18 16:16 Urine Appearance Clear (Clear) 05/20/18 16:16 Urine pH 5.5 (4.5-7.8) 05/20/18 16:16 Ur Specific Conception 1.020 (1.005-1.030) 05/20/18 16:16 Urine Protein Negative mg/dL 05/20/18 16:16 Urine Glucose (UA) >=1000 mg/dL (Negative) H 05/20/18 16:16 Urine Ketones 15 mg/dL (NEGATIVE) H 05/20/18 16:16 Urine Blood Negative (Negative) 05/20/18 16:16 Urine Nitrite Negative 05/20/18 16:16 Urine Bilirubin Negative (NEGATIVE) 05/20/18 16:16 Urine Urobilinogen 0.2 mg/dL (0.2-1.0) 05/20/18 16:16 Ur Leukocyte Esterase Negative (Negative) 05/20/18 16:16 Urine RBC 0 /hpf 05/20/18 16:16 Urine WBC 0-1 /hpf 05/20/18 16:16 Ur Epithelial Cells 0 /hpf 05/20/18 16:16 Urine Bacteria 0 05/20/18 16:16 Patient Name: MALLORY ZULUAGA Gender: Male Date of : 1935 Referring Physician: BILL MEDEL Organization: [facility] Accession Number: [id number] Requested Date: May 20, 2018 15:09 Report Status: Final Requested Procedure: 1 Procedure Description: Head Modality: CT Findings Reporting MD: Kofi Lin Fellow MD: Not available Dictation Time: Pipe Production Worker: Not available Broke Beater Date: EXAM DESCRIPTION: Head CLINICAL HISTORY: fall with altered LOC COMPARISON: None available TECHNIQUE: Multiple axial images of the head without contrast. Multiplanar reformatted images. This exam was performed according to our departmental dose-optimization program, which includes automated exposure control, adjustment of the mA and/or kV according to patient size and/or use of iterative reconstruction technique. FINDINGS: There is no CT evidence of intracranial hemorrhage, mass effect, or large territory infarction. Moderate generalized volume loss. Moderate patchy supratentorial white matter hypodensities. There are no abnormal extra-axial fluid collections. Calcific plaque in the visualized arteries. There is no acute calvarial defect. The visualized paranasal sinuses and the mastoids are clear. IMPRESSION: 1. No CT evidence of an acute intracranial abnormality. If there is concern for an acute or subacute infarct, consider follow-up MRI. 2. Senescent changes. Patient Name: MALLORY ZULUAGA Gender: Male Date of : 1935 Referring Physician: BILL MEDEL Organization: [facility] Accession Number: [id number] Requested Date: May 20, 2018 15:09 Report Status: Final Requested Procedure: 1 Procedure Description: Chest,1 View Modality: CR Findings Reporting MD: Kofi Lin Fellow MD: Not available Dictation Time: Pipe Production Worker: Not available Broke Beater Date: EXAM DESCRIPTION: Chest,1 View CLINICAL HISTORY: 83 years Male, altered LOC COMPARISON: 01/11/2018 IMPRESSION: The heart is enlarged, without failure. Median sternotomy wires are present. Emphysema and fibrosis. Patchy reticulonodular and airspace opacities in the left lung base which may be minimally progressed from the prior exam. This may represent fibrosis/scarring, but superimposed pneumonia is not excluded. Small left pleural effusion versus pleural thickening. No pneumothorax. Short interval follow-up recommended. No acute osseous abnormality. Electronically signed by: Kofi Lin MD 05/20/2018 3:48 PM CDT Spoke with family with negative, reassuring exams. They state they wanted to make sure no damage from fall with head contusion and that there was not something reversible accounting for his recent worsening. They will discuss with hospice and family if they are ready to move to [place] and will discuss with PCP if some of his medications including the ativan could be adding to the falls. They do want to be discharged home at this time.l Departure - Departure Clinical Impression: Contusion Qualifiers: Encounter type: initial encounter Contusion area: head Contusion of head detail : globe Laterality: left Qualified Code(s): S05.12XA - Contusion of eyeball and orbital tissues, left eye, initial encounter Dementia Qualifiers: Dementia type: Alzheimer's disease Alzheimer's disease onset: unspecified onset Dementia behavioral disturbance: with behavioral disturbance Qualified Code(s): G30.8 - Other Alzheimer's disease Disposition: Discharge to Home or Self Care Condition: Fair Departure Forms: ED Discharge - Pt. Copy, Patient Portal Self Enrollment Diet: regular diet Activity: walking as tolerated Referrals: Nathan Hanna MD [Primary Care Provider] - 1-2 Weeks Home Medications: Ambulatory Orders Gabapentin 300 mg PO BEDTIME 10/09/17 Metformin HCl 500 mg PO BIDFD 10/09/17 Warfarin Sodium [Coumadin] 5 mg PO 1700 10/09/17 Citalopram Hydrobromide [Celexa] 10 mg PO DAILY 12/24/17 raNITIdine HCL [Zantac] 150 mg PO BID 12/24/17 Ascorbic Acid [Vitamin C] 250 mg PO BID 01/10/18 Calcium Carbonate-Cholecalcife [Calcium 600+D 600-400 mg-Unit] 1 tab PO DAILY Ergocalciferol [Drisdol] 50,000 unit PO WKLY 01/10/18 Ferrous Sulfate [Slow Release Iron] 1 tablet PO DAILY 01/10/18 Fluticasone/Salmeterol 100/50 [Advair 100/50 Diskus] 1 puff INH BID 01/10/18 Guaifenesin [Mucinex] 600 mg PO BID 01/10/18 HYDROcodone 5MG/APAP 325MG [Partlow 5/325] 1 ea PO Q6H PRN 01/10/18 Insulin Lispro (Human) [Humalog] 0 unit SUBCU ACHS PRN 01/10/18 Ipratropium/Albuterol [Duoneb] 3 ml INH QID PRN 01/10/18 Midodrine HCl 5 mg PO TID 01/10/18 Multiple Vitamins W/ Minerals [Multivitamin Adults] 1 tab PO DAILY 01/10/18 Senna/Docusate Tab [Senokot-S] 1 ea PO DAILY 01/10/18 Additional Instructions: discuss with PCP in am possible NH placement and if change in his medication is needed. Return to ER for altered LOC
--- NOTE | 2018-05-20 15:49 | RAD ---
EXAM DESCRIPTION: Chest,1 View CLINICAL HISTORY: 83 years Male, altered LOC COMPARISON: 01/11/2018 IMPRESSION: The heart is enlarged, without failure. Median sternotomy wires are present. Emphysema and fibrosis. Patchy reticulonodular and airspace opacities in the left lung base which may be minimally progressed from the prior exam. This may represent fibrosis/scarring, but superimposed pneumonia is not excluded. Small left pleural effusion versus pleural thickening. No pneumothorax. Short interval follow-up recommended. No acute osseous abnormality. Electronically signed by: Kofi Lin MD 05/20/2018 3:48 PM CDT
--- NOTE | 2018-05-20 15:52 | CT ---
EXAM DESCRIPTION: Head CLINICAL HISTORY: fall with altered LOC COMPARISON: None available TECHNIQUE: Multiple axial images of the head without contrast. Multiplanar reformatted images. This exam was performed according to our departmental dose-optimization program, which includes automated exposure control, adjustment of the mA and/or kV according to patient size and/or use of iterative reconstruction technique. FINDINGS: There is no CT evidence of intracranial hemorrhage, mass effect, or large territory infarction. Moderate generalized volume loss. Moderate patchy supratentorial white matter hypodensities. There are no abnormal extra-axial fluid collections. Calcific plaque in the visualized arteries. There is no acute calvarial defect. The visualized paranasal sinuses and the mastoids are clear. IMPRESSION: 1. No CT evidence of an acute intracranial abnormality. If there is concern for an acute or subacute infarct, consider follow-up MRI. 2. Senescent changes. Electronically signed by: Kofi Lin MD 05/20/2018 3:51 PM CDT
[2018-05-20 18:32] VITALS: BP 147/85; O2SAT 98
== END 2018-05-20 18:50 | disposition home or self-care (01) ==
LOC: ER 14:36
DX: S05.12XA Contusion of eyeball and orbital tissues, left eye, initial encounter (principal); G30.9 Alzheimer's disease, unspecified; F02.81 Dementia in other diseases classified elsewhere, unspecified severity, with behavioral disturbance; J44.9 Chronic obstructive pulmonary disease, unspecified; E11.9 Type 2 diabetes mellitus without complications; Z95.2 Presence of prosthetic heart valve; Z79.01 Long term (current) use of anticoagulants; Z79.84 Long term (current) use of oral hypoglycemic drugs; Z79.4 Long term (current) use of insulin; W19.XXXA Unspecified fall, initial encounter; Y92.480 Sidewalk as the place of occurrence of the external cause